=== PATIENT | female | born 1980 | race American Indian/Alaskan Native ===

== ENCOUNTER 2023-10-18 16:06 | Emergency (ER) | payer MEDICARE, BC, SELFPAY ==
[2023-10-18 16:21] VITALS: BP 107/73
[2023-10-18] MEDS: TYLENOL 1000 MG PO (17:01)
[2023-10-18 17:42] LABS: COVID-19 Antigen Negative (Negative)
[2023-10-18 19:35] LABS: Urine Albumin Trace (Neg - Trace); Urine Bilirubin 1+ (Negative); Urine Character Clear (Clear); Urine Color Yellow; Urine Glucose Negative (Negative); Urine Ketone Trace (Negative); Urine Leukocyte 1+ (Negative); Urine Nitrite Negative (Negative); Urine Occult Blood 3+ (Negative); Urine Specific Gravity 1.015 (<1.030); Urine Urobilinogen Negative (Neg - 1+)
[2023-10-18 19:40] LABS: Urine Squamous Cell >30 /LPF (Few)
[2023-10-18 19:41] LABS: Urine Bacteria Few (Negative); Urine Red Blood Cell 16-20 /HPF (0-2)
--- NOTE | 2023-10-18 20:00 | ED.GENMED ---
History of Present Illness
<Rickie Soares MD - Last Filed: 10/19/23 09:13>
General
Chief Complaint: Fever
Source: patient
Exam Limitations: none
Time Seen by Provider: 10/18/23 18:27
Nursing documentation reviewed up to this point in time: agreed with
Travel History
Have you had any contact with someone who has COVID-19?: No
Do you have any symptoms of coronavirus? Fever > 100 degrees, chills, cough, shortness of breath, sore throat, loss of taste or smell, muscle aches, or headache?: Yes
Symptoms:: 103.2
History of Present Illness
History of Present Illness:
Patient with history of invasive breast carcinoma, status post mastectomy, status post oophorectomy, currently being treated for number of 'autoimmune disease', including IVIG infusion at home with last treatment 5 days ago, as prescribed by her
neurologist, presents to ED secondary to persistent fever, associated with headache, nausea, and vomiting over the past 4 days. Patient reports generalized weakness along with increased neuropathic pain. Denies neck pain. Denies sore throat.
Denies blurred vision. Denies loss of sensation or weakness. Denies rash. Denies sick contact. Denies recent travel. Denies previous history of similar symptoms. Denies difficulty with urination. Denies coughing. Denies sore throat.
Past History
<Rickie Soares MD - Last Filed: 10/19/23 09:13>
Past History
ED Past Medical History: Cancer (breats), Fibromyalgia, HTN, Hypothyroidism, Psychiatric (A/D, bipolar) and Other (RSD)
ED Past Surgical History: and Other (Multiple abdominal surgeries)
Social History
Tobacco: Non-smoker
Alcohol: None
Drug: None
Personal:
Living: with family
Employment: Employed (Former pharmacist now owns a pharmacy)
Family History
Family History: Hypertension
Review of Systems
<Rickie Soares MD - Last Filed: 10/19/23 09:13>
Review of Systems
Allergies reviewed?: Yes
All Other Systems: ROS reviewed and negative except as documented in HPI and ROS
Constitutional: Reports fever and chills
EENT: Reports no symptoms; Denies sore throat
Respiratory: Reports no symptoms
Cardiac: Reports no symptoms
ABD/GI: Reports nausea and vomiting; Denies diarrhea
: Reports no symptoms
Musculoskeletal: Reports no symptoms; Denies neck pain
Skin: Reports no symptoms
Neurological: Reports headache; Denies dizzy or weakness
Phy Exam
<Rickie Soares MD - Last Filed: 10/19/23 09:13>
Physical Exam
Physical Exam:
Physical Exam
General: mild distress, not acutely ill. afebrile
Head: nc/at. eomi
Neck: supple. no meningeal signs. negative Kernig's and Brudzinski sign.
Heart: s1/s2 regular rate and rhythm, no murmur. equal radial pulses.
Lungs: no acute respiratory distress. clear bilaterally
Abdomen: normal bowel sounds. not tender. no distention
Neuro: alert and oriented. no focal neurological deficits
Skin: no rash
Psychiatric: well kept. interactive and cooperative
Extremities: no edema. no calf tenderness.
Course
<Rickie Soares MD - Last Filed: 10/19/23 09:13>
Orders/Labs/Results
Orders:
Orders
10/18/23 16:53
Acetaminophen [Tylenol] 1,000 mg .ROUTE .STK-MED ONE
10/18/23 17:00
Acetaminophen [Tylenol] 1,000 mg PO NOW STA
10/18/23 17:06
COVID-19 Antigen Urgent
Source: Nasal Swab
Influenza A+B Rapid Molecular Urgent
[facility]EN[facility] Source: Nasal Swab
Specimen Description:
10/18/23 19:16
0.9% Sodium Chloride 1000 ml [Nss] 1,000 ml IV BOLUS
HYDROmorphone [Dilaudid] 0.5 mg IV NOW STA
Ondansetron Injectable [Zofran] 4 mg IV NOW STA
10/18/23 19:28
Urinalysis Reflex To Culture Urgent
Date Specimen was Collected: 10/18/23
Time Specimen was Collected: 19:22
Urine Microscopic Reflex Cult Urgent
Urine Culture Urgent
HENRY Source: U
Specimen Description:
Date Specimen was Collected: 10/18/23
Time Specimen was Collected: 19:22
10/18/23 19:46
Add On- LAB Urgent
Tests Added?: serum B-HCG, qualitative
CT Abd/pel Without Iv Or Oral Urgent
Comment:
Reason For Exam: flank pain w hematuria
10/18/23 20:00
Blood Culture Q30M
[facility]ENRY Source: Blood/Venous
Specimen Description:
10/18/23 20:33
Complete Blood Count/With Diff Urgent
Comprehensive Metabolic Panel Urgent
HCG, Serum Qualitative Screen Urgent
Comment: ADD ON
Lactic Acid Q4H
Comment: CANCEL 2nd LACTIC ACID IF 1st LACTIC ACID IS LESS THAN 2
Magnesium Urgent
Manual Differential Urgent
Blood Culture Q30M
[facility]ENRY Source: Blood/Venous
Specimen Description:
10/18/23 22:58
Diphenhydramine [Benadryl] 25 mg IV NOW STA
Abnormal Lab Results
10/18/23 10/18/23
19:28 20:33
WBC 2.6 L 10^3/uL
(4.8-10.8)
RBC 3.76 L 10^6/uL
(4.20-5.40)
Hgb 11.4 L g/dL
(12.0-16.0)
Hct 32.6 L %
(37.0-47.0)
MPV 10.6 H fL
(7.4-10.4)
Sodium 127 L mmol/L
(135-145)
Chloride 97 L mmol/L
(98-107)
BUN 19 H mg/dl
(7-17)
AST 80 H U/L
(14-36)
ALT 42 H U/L
(0-35)
Total Protein 9.6 H g/dl
(6.3-8.2)
Urine Ketones Trace A
(Negative)
Ur Occult Blood Reflex 3+ A
(Negative)
Urine Bilirubin 1+ A
(Negative)
Leukocyte Esterase Rfl 1+ A
(Negative)
Urine RBC 16-20 A /HPF
(0-2)
Urine WBC (Reflex) 11-15 A /HPF
(0-5)
Urine Bacteria (Reflex) Few A
(Negative)
10/18/23 20:33
10/18/23 20:33
Vital Signs
Initial and Last Documented VS:
Initial Vital Signs
Temp Pulse Resp BP Pulse Ox
103.2 F H 121 18 107/73 99
10/18/23 16:21 10/18/23 16:21 10/18/23 16:21 10/18/23 16:21 10/18/23 16:21
Last Documented Vital Signs
Temp Pulse Resp BP Pulse Ox
98.4 F 80 18 96/71 98
10/18/23 23:53 10/19/23 00:00 10/19/23 00:00 10/19/23 00:00 10/18/23 21:56
<Christopher Chavez, DO - Last Filed: 10/18/23 23:53>
Orders/Labs/Results
Orders:
Orders
10/18/23 16:53
Acetaminophen [Tylenol] 1,000 mg .ROUTE .STK-MED ONE
10/18/23 17:00
Acetaminophen [Tylenol] 1,000 mg PO NOW STA
10/18/23 17:06
COVID-19 Antigen Urgent
Source: Nasal Swab
Influenza A+B Rapid Molecular Urgent
[facility]ENRY Source: Nasal Swab
Specimen Description:
10/18/23 19:16
0.9% Sodium Chloride 1000 ml [Nss] 1,000 ml IV BOLUS
HYDROmorphone [Dilaudid] 0.5 mg IV NOW STA
Ondansetron Injectable [Zofran] 4 mg IV NOW STA
10/18/23 19:28
Urinalysis Reflex To Culture Urgent
Date Specimen was Collected: 10/18/23
Time Specimen was Collected: 19:22
Urine Microscopic Reflex Cult Urgent
Urine Culture Urgent
HENRY Source: U
Specimen Description:
Date Specimen was Collected: 10/18/23
Time Specimen was Collected: 19:22
10/18/23 19:46
Add On- LAB Urgent
Tests Added?: serum B-HCG, qualitative
CT Abd/pel Without Iv Or Oral Urgent
Comment:
Reason For Exam: flank pain w hematuria
10/18/23 20:00
Blood Culture Q30M
[facility] Source: Blood/Venous
Specimen Description:
10/18/23 20:33
Complete Blood Count/With Diff Urgent
Comprehensive Metabolic Panel Urgent
HCG, Serum Qualitative Screen Urgent
Comment: ADD ON
Lactic Acid Q4H
Comment: CANCEL 2nd LACTIC ACID IF 1st LACTIC ACID IS LESS THAN 2
Magnesium Urgent
Manual Differential Urgent
Blood Culture Q30M
[facility]ENRY Source: Blood/Venous
Specimen Description:
10/18/23 22:58
Diphenhydramine [Benadryl] 25 mg IV NOW STA
Abnormal Lab Results
10/18/23 10/18/23
19:28 20:33
WBC 2.6 L 10^3/uL
(4.8-10.8)
RBC 3.76 L 10^6/uL
(4.20-5.40)
Hgb 11.4 L g/dL
(12.0-16.0)
Hct 32.6 L %
(37.0-47.0)
MPV 10.6 H fL
(7.4-10.4)
Sodium 127 L mmol/L
(135-145)
Chloride 97 L mmol/L
(98-107)
BUN 19 H mg/dl
(7-17)
AST 80 H U/L
(14-36)
ALT 42 H U/L
(0-35)
Total Protein 9.6 H g/dl
(6.3-8.2)
Urine Ketones Trace A
(Negative)
Ur Occult Blood Reflex 3+ A
(Negative)
Urine Bilirubin 1+ A
(Negative)
Leukocyte Esterase Rfl 1+ A
(Negative)
Urine RBC 16-20 A /HPF
(0-2)
Urine WBC (Reflex) 11-15 A /HPF
(0-5)
Urine Bacteria (Reflex) Few A
(Negative)
10/18/23 20:33
10/18/23 20:33
Vital Signs
Temp: 98.4 F
Pulse: 80
Initial and Last Documented VS:
Initial Vital Signs
Temp Pulse Resp BP Pulse Ox
103.2 F H 121 18 107/73 99
10/18/23 16:21 10/18/23 16:21 10/18/23 16:21 10/18/23 16:21 10/18/23 16:21
Last Documented Vital Signs
Temp Pulse Resp BP Pulse Ox
98.4 F 80 18 96/71 98
10/18/23 23:53 10/19/23 00:00 10/19/23 00:00 10/19/23 00:00 10/18/23 21:56
<Mayank Tapia PA-C - Last Filed: 10/20/23 11:21>
Orders/Labs/Results
Orders:
Orders
10/18/23 16:53
Acetaminophen [Tylenol] 1,000 mg .ROUTE .STK-MED ONE
10/18/23 17:00
Acetaminophen [Tylenol] 1,000 mg PO NOW STA
10/18/23 17:06
COVID-19 Antigen Urgent
Source: Nasal Swab
Influenza A+B Rapid Molecular Urgent
[facility] Source: Nasal Swab
Specimen Description:
10/18/23 19:16
0.9% Sodium Chloride 1000 ml [Nss] 1,000 ml IV BOLUS
HYDROmorphone [Dilaudid] 0.5 mg IV NOW STA
Ondansetron Injectable [Zofran] 4 mg IV NOW STA
10/18/23 19:28
Urinalysis Reflex To Culture Urgent
Date Specimen was Collected: 10/18/23
Time Specimen was Collected: 19:22
Urine Microscopic Reflex Cult Urgent
Urine Culture Urgent
[facility] Source: U
Specimen Description:
Date Specimen was Collected: 10/18/23
Time Specimen was Collected: 19:22
10/18/23 19:46
Add On- LAB Urgent
Tests Added?: serum B-HCG, qualitative
CT Abd/pel Without Iv Or Oral Urgent
Comment:
Reason For Exam: flank pain w hematuria
10/18/23 20:00
Blood Culture Q30M
[facility] Source: Blood/Venous
Specimen Description:
10/18/23 20:33
Complete Blood Count/With Diff Urgent
Comprehensive Metabolic Panel Urgent
HCG, Serum Qualitative Screen Urgent
Comment: ADD ON
Lactic Acid Q4H
Comment: CANCEL 2nd LACTIC ACID IF 1st LACTIC ACID IS LESS THAN 2
Magnesium Urgent
Manual Differential Urgent
Blood Culture Q30M
[facility] Source: Blood/Venous
Specimen Description:
10/18/23 22:58
Diphenhydramine [Benadryl] 25 mg IV NOW STA
Abnormal Lab Results
10/18/23 10/18/23
19:28 20:33
WBC 2.6 L 10^3/uL
(4.8-10.8)
RBC 3.76 L 10^6/uL
(4.20-5.40)
Hgb 11.4 L g/dL
(12.0-16.0)
Hct 32.6 L %
(37.0-47.0)
MPV 10.6 H fL
(7.4-10.4)
Sodium 127 L mmol/L
(135-145)
Chloride 97 L mmol/L
(98-107)
BUN 19 H mg/dl
(7-17)
AST 80 H U/L
(14-36)
ALT 42 H U/L
(0-35)
Total Protein 9.6 H g/dl
(6.3-8.2)
Urine Ketones Trace A
(Negative)
Ur Occult Blood Reflex 3+ A
(Negative)
Urine Bilirubin 1+ A
(Negative)
Leukocyte Esterase Rfl 1+ A
(Negative)
Urine RBC 16-20 A /HPF
(0-2)
Urine WBC (Reflex) 11-15 A /HPF
(0-5)
Urine Bacteria (Reflex) Few A
(Negative)
10/18/23 20:33
10/18/23 20:33
Vital Signs
Initial and Last Documented VS:
Initial Vital Signs
Temp Pulse Resp BP Pulse Ox
103.2 F H 121 18 107/73 99
10/18/23 16:21 10/18/23 16:21 10/18/23 16:21 10/18/23 16:21 10/18/23 16:21
Last Documented Vital Signs
Temp Pulse Resp BP Pulse Ox
98.4 F 80 18 96/71 98
10/18/23 23:53 10/19/23 00:00 10/19/23 00:00 10/19/23 00:00 10/18/23 21:56
<Rickie Soares MD - Last Filed: 10/19/23 09:13>
MDM/Problems Addressed
MDM/Problems Addressed:
History and exam inconsistent with meningitis, as patient remains neurologically intact without any evidence of meningismus.
CT abdomen pelvis ordered secondary to hematuria along with nonspecific flank pain along with fever. CT scan: No acute findings.
Patient reports improvement in symptoms after treatment. Patient will be given IV fluids and reassessed.
<Rickie Soares MD - Last Filed: 10/19/23 09:13>
*Critical Care Note
Total Time (30-74mins, 75-104mins- exclusive of procedures): Not Applicable
<Christopher Chavez DO - Last Filed: 10/18/23 23:53>
Update Note
Update Note:
Other than mild hyponatremia, chemistries relatively unremarkable, heart rate has improved with IV fluids. No clear sign for UTI based on UA�urine culture to be pending. CT suggest some degree of constipation. Leukopenia noted. She was given IV
fluids. During IV fluid administration, she developed some itchiness and think this may be related to allergen from the IV bag. Benadryl was ordered.
<Mayank Tapia PA-C - Last Filed: 10/20/23 11:21>
Update Note
Update Note:
Other than mild hyponatremia, chemistries relatively unremarkable, heart rate has improved with IV fluids. No clear sign for UTI based on UA�urine culture to be pending. CT suggest some degree of constipation. Leukopenia noted. She was given IV
fluids. During IV fluid administration, she developed some itchiness and think this may be related to allergen from the IV bag. Benadryl was ordered.
Callback Addendum by Mayank Tapia PA-C
10/20/2023 0921
Attempted to contact patient without success. Voicemail left. Preliminary urine culture reveals greater than 100,000 CFU presumptive E. coli. Pending final results. Patient will likely need antibiotic therapy given symptoms/pmhx.
Callback Addendum by Mayank Tapia PA-C
10/20/2023 1121
Patient called back, she states she would like to come back in for re-evaluation, now with fever 103, back pain, vomiting.
ED Attending Note
<Rickie Soares MD - Last Filed: 10/19/23 09:13>
-
Portions of this chart may have been created with voice recognition software.� Occasional wrong word or��sound alike� substitutions may have occurred due to the inherent limitations of voice recognition software.
Discharge Plan
Departure
Patient Disposition: Home (Routine Discharge)
Date of Disposition: 10/18/23
Time of Disposition: 23:49
Patient with high blood pressure during this ER visit?: Yes
Discharge Problem:
Fever
Instructions: Fever, Adult (DC)
Prescriptions:
No Action
levothyroxine 112 MCG tablet
150 mcg PO DAILY
bupropion HCl 300 MG tablet extended release 24 hr
300 mg PO DAILY
venlafaxine [Effexor XR] 37.5 MG capsule,extended release 24hr
37.5 mg PO BID
lidocaine 1 PATCH adhesive patch,medicated
1 patch topical DAILY
gabapentin 100 MG capsule
100 mg PO Daily
cholecalciferol (vitamin D3) 2,000 UNIT tablet
5,000 unit PO Daily
qikeswdaah-uwfmoozjdykhj-yznm [Fioricet] 1 EACH capsule
1 ea PO Daily PRN (Reason: Headache)
lgvwjuuvqcdham-jdvyg-7-dha-epa [Vayarin] 1 EACH capsule
1 ea PO Daily
metronidazole 500 MG tablet
500 mg PO TID Qty: 21 0RF
levofloxacin 500 MG tablet
500 mg PO DAILY Qty: 7 0RF
ascorbic acid (vitamin C) [Vitamin C] 500 MG tablet
1,000 mg PO BID Qty: 56 0RF
Rx Instructions:
Take 1,000 mg twice a day for 14 days
albuterol sulfate 1 PUFF HFA aerosol inhaler
2 puff inhalation R Q4HPRN PRN (Reason: shortness of breath) Qty: 1 0RF
zinc sulfate 220 MG capsule
220 mg PO DAILY Qty: 14 0RF
Rx Instructions:
Take 220 mg daily for 14 days
cholecalciferol (vitamin D3) 1,000 UNITS tablet
2,000 units PO DAILY Qty: 28 0RF
Rx Instructions:
Take 2,000 units daily for 14 days
Referrals:
UNKNOWN - PT DOES,NOT KNOW [Family Provider] -
Activity Restrictions/Additional Instructions:
Blood cultures are currently pending. Your white count is a little bit low at 2.6 but your absolute neutrophil count is normal. Your sodium level is a little bit low at 127 but otherwise chemistry tests are normal. testing is negative.
There is no definite sign of urinary tract infection but urine culture and blood cultures are pending. Flu and COVID testing are negative. Return here if worse.
Interventions
Interventions:
*Risk Screen - Suicide Last Done: 10/19/23 00:16
*General Assessment Last Done: 10/19/23 00:16
*Neglect/Abuse Screening Last Done: 10/19/23 00:16
ED- Fall Risk Assessment Last Done: 10/18/23 21:57
*ED COVID-19 Vaccine History Last Done: 10/19/23 00:16
*Nursing Disposition Last Done: 10/19/23 00:16
NG-Omxkxr-Bkroowhhlf Assessment Last Done: 10/18/23 21:57
ED- Neurological Assessment Last Done: 10/18/23 21:57
ED-Skin Assessment Last Done: 10/18/23 21:57
Discharge Date and Time
Discharge Date/Time: 10/19/23 00:34
Print Language: PASHTO
[2023-10-18] MEDS: ZOFRAN 4 MG IV (20:19)
[2023-10-18] MEDS: DILAUDID 0.5 MG IV (20:19)
[2023-10-18] MEDS: NSS 1000 IV (20:20)
[2023-10-18 20:44] LABS: Hematocrit 32.6 % (37.0-47.0); Hemoglobin 11.4 g/dL (12.0-16.0); Mean Corpuscular Hgb 30.3 pg (27.0-31.0); Mean Corpuscular Volume 86.7 fL (81.0-99.0); Mean Platelet Volume 10.6 fL (7.4-10.4); Platelet Count 135 10^3/uL (130-400); Red Blood Cell Count 3.76 10^6/uL (4.20-5.40); Red Cell Dist. Width 13.1 % (11.5-14.5); White Blood Cell Count 2.6 10^3/uL (4.8-10.8)
[2023-10-18 20:54] LABS: HCG, Serum Qualitative Screen Negative
[2023-10-18 20:58] LABS: Lactic Acid 0.9 mmol/L (0.7-2.0)
[2023-10-18 21:06] LABS: Absolute Neutrophils -Man Diff 1.7 10^3/uL (1.4-6.5); Atypical Lymphocytes 7 %; Band Neutrophils 0 % (0-3); Lymphocytes 21 % (20-51); Monocytes 4 % (2-9); Segmented Neutrophils 68 % (42-75)
[2023-10-18 21:07] LABS: Normal RBC Morphology Yes; Platelets Checked Yes; Total Cells Counted 100
[2023-10-18 21:30] LABS: ALT (SGPT) 42 U/L (0-35); AST (SGOT) 80 U/L (14-36); Alkaline Phosphatase 53 U/L (38-126); Blood Urea Nitrogen 19 mg/dl (7-17); Calcium 8.6 mg/dl (8.4-10.2); Carbon Dioxide 24 mmol/L (22-30); Chloride 97 mmol/L (98-107); Glucose 99 mg/dl (70-99); Magnesium 1.8 mg/dl (1.6-2.3); Sodium 127 mmol/L (135-145); Total Bilirubin 0.9 mg/dl (0.2-1.3); Total Protein 9.6 g/dl (6.3-8.2); eGFR > 60.00
[2023-10-18 21:43] VITALS: BP 105/73
[2023-10-18 21:56] VITALS: BP 105/73
[2023-10-18] MEDS: BENADRYL 25 MG IV (23:19)
[2023-10-18 23:58] VITALS: BP 99/71
[2023-10-19] VITALS: BP 96/71
== END 2023-10-19 00:34 | disposition home or self-care (01) ==
LOC: EMR 16:06
PROVIDERS: Physician Assistant Medical; EMERGENCY PHYSICIAN Emergency Medicine
DX: R50.9 Fever, unspecified (principal); Z11.52 Encounter for screening for COVID-19; I10 Essential (primary) hypertension
CPT/HCPCS: 99284; 96374; 96375 ×2; 96361; 74176; 80053; 81003; 81015; 83605; 83735; 84703; 85025; 87040; 87077; 87086; 87088; 87186; 87502; 87811

== ENCOUNTER 2023-10-20 17:37 | Inpatient (IN) | payer MEDICARE, BC, SELFPAY ==
[2023-10-20 12:00] VITALS: BP 107/75
--- NOTE | 2023-10-20 13:18 | ED.GENMED ---
History of Present Illness
General
Chief Complaint: Fever
Source: patient and records
Time Seen by Provider: 10/20/23 12:55
Travel History
Have you had any contact with someone who has COVID-19?: No
Do you have any symptoms of coronavirus? Fever > 100 degrees, chills, cough, shortness of breath, sore throat, loss of taste or smell, muscle aches, or headache?: Yes
Symptoms:: fever
History of Present Illness
History of Present Illness:
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
fevers after being seen here on Sunday for similar. Patient's urine culture came back positive and she had not been started on antibiotics. Received a phone call earlier this morning about the positive urine culture but did not start the
antibiotic. Patient notes continued weakness, body aches, headache, nausea, decreased p.o. intake to both solids and liquids but denies any urinary symptoms. No known sick contacts, recent travel or recent antibiotics. Last dose of Tylenol was
while in the waiting room. Social history otherwise noncontributory.
Past History
Past History
ED Past Medical History: Cancer (breats), Fibromyalgia, HTN, Hypothyroidism, Psychiatric (A/D, bipolar) and Other (RSD)
ED Past Surgical History: and Other (Multiple abdominal surgeries)
Social History
Tobacco: Non-smoker
Alcohol: None
Drug: None
Personal:
Living: with family
Employment: Employed (Former pharmacist now owns a pharmacy)
Family History
Family History: Hypertension
Review of Systems
Review of Systems
All Other Systems: ROS reviewed and negative except as documented in HPI and ROS
Phy Exam
Physical Exam
Physical Exam:
GENERAL: Alert , ill-appearing but nontoxic
EYE: clear conjunctiva b/l
HEAD: NCAT
ENT: o/p clr, mmm.
CARDIAC: Tachycardic rate and rhythm, no murmur
LUNGS: Clear breath sounds bilaterally, no acute respiratory distress, no wheezes/rales/rhonchi
ABDOMEN: Soft, without focal tenderness, no r/g, mild right CVA tenderness
NEUROLOGICAL: Alert and oriented
SKIN: Warm and dry, skin intact.
MUSCULOSKELETAL: No edema, well perfused.
PSYCH: Normal and appropriate interaction.
Scores
Heart Failure Risk
Heart Failure Risk Score: Not Applicable
Heart Score for Chest Pain Patients
STEMI patient?: Not applicable
Withdrawal Assessment of Alcohol
Withdrawal Assessment Completed?: Not applicable
Course
Orders/Labs/Results
Orders:
Orders
10/20/23 13:16
Urinalysis Reflex To Culture Urgent
Date Specimen was Collected: 10/20/23
Time Specimen was Collected: 13:44
CefTRIAXone [Rocephin] 1,000 mg IV NOW STA
Ondansetron Injectable [Zofran] 4 mg IV NOW STA
10/20/23 13:17
CR Chest - 2 Views Urgent
Comment:
Reason For Exam: fever
10/20/23 13:21
COVID-19 Antigen Urgent
Source: Nasal Swab
US Kidneys [US Renal Only W/O Bladder] Urgent
Comment:
Reason For Exam: right flank pain, UTI, fever
10/20/23 13:32
Complete Blood Count/With Diff Urgent
Comprehensive Metabolic Panel Urgent
Lactic Acid Q4H
Comment: CANCEL 2nd LACTIC ACID IF 1st LACTIC ACID IS LESS THAN 2
Manual Differential Urgent
Procalcitonin Urgent
PCT Algorithmm Indication: Sepsis
Blood Culture Q30M
[facility] Source: Blood/Venous
Specimen Description:
Blood Culture Q30M
[facility] Source: Blood/Venous
Specimen Description:
10/20/23 13:50
Sterile Water [Sterile Water For Injection] 10 ml .ROUTE .STK-MED ONE
10/20/23 14:18
Monotest Urgent
Influenza A+B Rapid Molecular Urgent
[facility] Source: Nasal Swab
Specimen Description:
10/20/23 14:30
HYDROmorphone [Dilaudid] 1 mg IV NOW STA
Abnormal Lab Results
10/20/23 10/20/23
13:32 14:18
WBC 2.6 L 10^3/uL
(4.8-10.8)
RBC 3.49 L 10^6/uL
(4.20-5.40)
Hgb 10.5 L g/dL
(12.0-16.0)
Hct 29.3 L %
(37.0-47.0)
Plt Count 110 L 10^3/uL
(130-400)
MPV 10.5 H fL
(7.4-10.4)
Band Neutrophils 10 H D %
(0-3)
Sodium 128 L mmol/L
(135-145)
Chloride 97 L mmol/L
(98-107)
Calcium 8.3 L mg/dl
(8.4-10.2)
AST 83 H U/L
(14-36)
ALT 40 H U/L
(0-35)
Total Protein 8.6 H g/dl
(6.3-8.2)
Monoscreen Positive A
(Negative)
10/20/23 13:32
10/20/23 13:32
Vital Signs
Initial and Last Documented VS:
Initial Vital Signs
Temp Pulse Resp BP Pulse Ox
102.1 F H 105 18 107/75 96
10/20/23 12:00 10/20/23 12:00 10/20/23 12:00 10/20/23 12:00 10/20/23 12:00
Last Documented Vital Signs
Temp Pulse Resp BP Pulse Ox
102.1 F H 105 18 107/75 96
10/20/23 12:00 10/20/23 12:00 10/20/23 12:00 10/20/23 12:00 10/20/23 12:00
MDM/Problems Addressed
Differential Diagnosis Includes:
Cystitis, pyelonephritis, infected kidney stone, bacteremia, COVID, flu, IVIG reaction
MDM/Problems Addressed:
43-year-old female presenting emergency department for evaluation of persistent fever, 5 days of symptoms, seen in this emergency department earlier this. She had labs, urine and cultures done. Urine culture did grow 100,000 CFU of E. coli and
50,000 CFU Streptococcus species. Urine culture shows good cephalosporin sensitive. Will treat with dose of Rocephin. Repeat cultures to be drawn. Given the right flank tenderness on exam will obtain an ultrasound of the kidneys. Anticipate
admission. Reassessment following.
Chronic conditions affecting care: Neurological disorder and Cancer
Acute Exacerbation and/or Progression of Chronic Illness: Neurological disorder
*Radiology
Radiology exam reviewed: radiology read reviewed
*Pulse Oximetry
Patient hypoxic: no
*Critical Care Note
Total Time (30-74mins, 75-104mins- exclusive of procedures): Not Applicable
Data Reviewed
Review of Other/Old Records Reveals: Labs, Records and Testing
Patient Management
Discussion with other providers: Hospitalist
Escalation/DeEscalation of care consider admission/obs:
When reviewing patient's labs from her last visit as well as today's it was noticed that patient had atypical lymphocytes and mildly elevated liver function tests on labs done 10/18/2023. I added on a monotest to labs that were already sent to the
lab. Her labs today show the same leukopenia but has a new bandemia. Mild hyponatremia and liver function test still slightly elevated. Patient's monotest ultimately did come back positive which I suspect is the reason behind a multitude of her
symptoms however given her bandemia combined with her urinary tract infection and continued generalized weakness will admit for IV antibiotics. Patient is happy and agreeable with this plan. She did note to me that following either the Rocephin or
Dilaudid she was experiencing some generalized pruritus so will order 25 mg of Benadryl. Hospitalist team was notified and accepts for continued evaluation and treatment
ED Attending Note
-
Portions of this chart may have been created with voice recognition software.� Occasional wrong word or��sound alike� substitutions may have occurred due to the inherent limitations of voice recognition software.
Discharge Plan
Departure
Patient Disposition: Admit
Date of Disposition: 10/20/23
Time of Disposition: 15:36
Presentation/result/management discussed w/ accepting MD/DO: Hospitalist
Discharge Problem:
UTI (urinary tract infection), Mononucleosis, Hyponatremia
Prescriptions:
No Action
levothyroxine 112 MCG tablet
150 mcg PO DAILY
bupropion HCl 300 MG tablet extended release 24 hr
300 mg PO DAILY
venlafaxine [Effexor XR] 37.5 MG capsule,extended release 24hr
37.5 mg PO BID
lidocaine 1 PATCH adhesive patch,medicated
1 patch topical DAILY
gabapentin 100 MG capsule
100 mg PO Daily
cholecalciferol (vitamin D3) 2,000 UNIT tablet
5,000 unit PO Daily
pkxzavbewb-eumptetlnjbqx-tzff [Fioricet] 1 EACH capsule
1 ea PO Daily PRN (Reason: Headache)
mmlmljdeaixdrp-jtgta-7-dha-epa [Vayarin] 1 EACH capsule
1 ea PO Daily
albuterol sulfate 1 PUFF HFA aerosol inhaler
2 puff inhalation R Q4HPRN PRN (Reason: shortness of breath) Qty: 1 0RF
Referrals:
UNKNOWN - PT DOES,NOT KNOW [Family Provider] -
Interventions
Interventions:
*Risk Screen - Suicide Last Done: 10/20/23 12:00
*General Assessment Last Done: 10/20/23 12:00
*Neglect/Abuse Screening Last Done: 10/20/23 12:00
*ED COVID-19 Vaccine History Last Done: 10/20/23 12:00
Discharge Date and Time
Print Language: MACEDONIAN
[2023-10-20 13:47] LABS: Hematocrit 29.3 % (37.0-47.0); Hemoglobin 10.5 g/dL (12.0-16.0); Mean Corp Hgb Conc. 35.8 g/dL (33.0-37.0); Mean Corpuscular Hgb 30.1 pg (27.0-31.0); Mean Platelet Volume 10.5 fL (7.4-10.4); Nucleated Red Blood Cells % 0 %; Platelet Count 110 10^3/uL (130-400); Red Blood Cell Count 3.49 10^6/uL (4.20-5.40); Red Cell Dist. Width 13.2 % (11.5-14.5); White Blood Cell Count 2.6 10^3/uL (4.8-10.8)
[2023-10-20 13:55] LABS: Lactic Acid 0.7 mmol/L (0.7-2.0)
[2023-10-20 14:00] LABS: ALT (SGPT) 40 U/L (0-35); AST (SGOT) 83 U/L (14-36); Albumin 3.7 g/dl (3.5-5.0); Alkaline Phosphatase 53 U/L (38-126); Blood Urea Nitrogen 13 mg/dl (7-17); Calcium 8.3 mg/dl (8.4-10.2); Carbon Dioxide 27 mmol/L (22-30); Chloride 97 mmol/L (98-107); Glucose 91 mg/dl (70-99); Sodium 128 mmol/L (135-145); Total Bilirubin 0.7 mg/dl (0.2-1.3); Total Protein 8.6 g/dl (6.3-8.2); eGFR > 60.00
[2023-10-20 14:14] LABS: Procalcitonin 0.05 ng/ml (0.0-0.25)
[2023-10-20 14:24] LABS: Absolute Neutrophils -Man Diff 1.4 10^3/uL (1.4-6.5); Band Neutrophils 10 % (0-3); Lymphocytes 36 % (20-51); Monocytes 7 % (2-9); Platelets Checked Yes; Segmented Neutrophils 47 % (42-75)
[2023-10-20 14:25] LABS: Normal RBC Morphology Yes; Total Cells Counted 100
[2023-10-20] MEDS: ZOFRAN 4 MG IV (14:33)
[2023-10-20] MEDS: ROCEPHIN 1000 MG IV (14:33)
[2023-10-20] MEDS: DILAUDID 1 MG IV (14:33)
[2023-10-20 15:20] LABS: Monotest Positive (Negative)
--- NOTE | 2023-10-20 15:50 | HPS.HSE ---
Family Physician
-
Family Physician: NOT KNOW UNKNOWN - PT DOES
Chief Complaint
-
Generalized weakness and fever
History of Present Illness
43-year-old with multiple comorbidities including breast cancer, fibromyalgia, RSD, hypothyroidism second visit to the ER over the last 2 to 3 days, initially was here on October 17 for persistent fever, where she was given fluid and urinalysis that
showed UTI but no antibiotic given according to the patient and the ER record. Continue to have a fever with generalized fatigue and body ache to the point admitted some point her body ache was 20/10 but over the last 24 hours is getting easier,
she has been on narcotic and including morphine 15 mg immediate release every 6 hours. Also Fioricet and Tylenol.
For more than a week she has been having pruritus and she takes Benadryl at home as needed.
Show received a phone call today that the urine culture is positive for E. coli therefore you she was advised to come back to the hospital especially she was still symptomatic. Admit increased urinary frequency lately otherwise no dysuria urgency
or suprapubic pain or burning. At mid poor appetite and no diarrhea or chest pain or shortness of breath or cough or congestion, no sick contacts or recent travel, admitted fatigue and persistent headache with no vision change, or overall her pain
is improved when she takes her morphine and Tylenol and Fioricet.
Looks dry and dehydrated, workup in the ER concerning for sepsis with neutropenia and temperature 102,
Given fluid and IV Rocephin in the ER.
Accompanied by her at the bedside
Medical History
Past Medical History
Past Medical History: Reports Other
Additional Past Medical History:
Past medical history Reviewed:
History of breast cancer status post chemo
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
Fibromyalgia
RSD
Immunocompromised as she gets IVIG every 4 weeks but week before she got 5-day course
Stenosing tenosynovitis right hand fingers
Peripheral neuropathy
Anxiety and mood disorder
PTSD
Hiatal hernia
Surgical history:
Abdominoplasty
x 3
Oophorectomy
Right mastectomy followed by reconstruction
Left breast left
Bowel resection secondary to small bowel obstruction
Social history: Lives at home with family, no smoking and rarely drinks alcohol and she is independent.
Family history: Reviewed and noncontributory
Past Surgical History: Reports Other
Social History
Unable to obtain full social history at this time due to: Other
Family History
Family History: Other
Allergies / Home Medications
Allergies reflects when Allergies were last updated in [facility].
Home Medications with original date entered in [facility]
Allergy/Medication List:
Allergies
Allergy/AdvReac Type Severity Reaction Status Date / Time
latex Allergy Intermediate Hives Verified 10/18/23 16:20
NSAIDS (Non-Steroidal Allergy Intermediate Itching Verified 10/18/23 16:20
Anti-Inflamma
DEHP Allergy Unknown Uncoded 10/20/23 12:03
Home Medications
cholecalciferol (vitamin D3) 50 mcg (2,000 unit) tablet 5,000 unit PO DAILY 01/06/19
lidocaine 5 % topical patch 3 patch topical DAILY 01/06/19
Greenfood 2 tab PO BID 10/20/23
Probiotic 1 - 2 cap PO TID 10/20/23
acetaminophen 500 mg tablet 1,000 mg PO Q6H PRN mild pain/fever 10/20/23
bupropion HCl 150 mg 24 hr tablet, extended release 300 mg PO DAILY 10/20/23
wsivnbypij-tqmiorkbjypkh-ixeesied 50 mg-325 mg-40 mg tablet 1 tab PO Q4H PRN headache 10/20/23
cariprazine 1.5 mg capsule (Vraylar) 1.5 mg PO BID 10/20/23
cyanocobalamin (vitamin B-12) 1,000 mcg tablet (Vitamin B-12) 1,000 mcg PO DAILY 10/20/23
diphenhydramine HCl 50 mg capsule 50 mg PO Q4H PRN allergic reaction/itching 10/20/23
gabapentin 600 mg tablet,extended release 24 hr (Gralise) 600 mg PO DAILY 10/20/23
cckkrszazvo-iedhwhkpf-dyw C-Mn 500 mg-400 mg capsule 2 cap PO BID 10/20/23
levothyroxine 75 mcg capsule (Tirosint) 75 mcg PO DAILY 10/20/23
liothyronine 5 mcg tablet 5 mcg PO DAILY 10/20/23
lisinopril 2.5 mg tablet 2.5 mg PO DAILY 10/20/23
metaxalone 800 mg tablet 800 mg PO BID PRN moderate pain 10/20/23
morphine 15 mg immediate release tablet 15 mg PO Q6H PRN severe pain 10/20/23
omega-3 acid ethyl esters 1 gram capsule 2 cap PO BID 10/20/23
ondansetron 4 mg disintegrating tablet 4 mg PO Q6H PRN nausea/vomiting 10/20/23
quetiapine 25 mg tablet 25 mg PO HS PRN sleep 10/20/23
turmeric 2 tab PO BID 10/20/23
Review of Systems
-
A 12 point ROS was completed and negative except as noted: Yes
Physical Exam
Vital Signs
Vital Signs
Temp Pulse Resp BP Pulse Ox
102.1 F H 105 18 107/75 96
10/20/23 12:00 10/20/23 12:00 10/20/23 12:00 10/20/23 12:00 10/20/23 12:00
Physical exam:
General: Lethargic but awake, alert and oriented x3, not in distress and holds appropriate conversation.
HEENT: No active discharge, ecchymosis or bruising, dry lips, tongue and mucous membrane.
Eyes: No discharge or red conjunctiva, no nystagmus, pupils are reactive and equal
Neck:Supple, no neck rigidity, no JVD no bruit no goiter.
Respiratory: Normal AP contour and diameter, normal chest wall movement, normal respiratory effort, no respiratory distress,
Lungs: Good air entry bilaterally, no wheezing or rhonchi, no rales or crackles
Heart: S1, S2 regular, normal rate, no added sound.
Gastrointestinal: Multiple abdominal scars, no evidence of infection, positive bowel sounds, soft, nontender, no guarding or rigidity or organomegaly
Musculoskeletal: , no chest wall abnormality or tenderness. All joints and extremities have good range of motion, no muscle tenderness or any joint swelling or tenderness.
Extremities: No pitting edema, good peripheral pulses, good range of motion
Skin: Warm and dry, no ulceration, normal color.
Neurological: Awake, alert and oriented x3, no facial droop,, speech clear and comprehensive, good muscle tone, moves extremities freely
Psychiatric: Normal mood, normal thought and judgment, normal affect,
Physical Exam
General: Other
Laboratory Results
-
10/20/23 13:32
10/20/23 13:32
Laboratory Results
Lactic Acid Cancelled 10/20/23 17:30
Total Bilirubin 0.7 mg/dl (0.2-1.3) 10/20/23 13:32
AST 83 U/L (14-36) H 10/20/23 13:32
ALT 40 U/L (0-35) H 10/20/23 13:32
Alkaline Phosphatase 53 U/L (38-126) 10/20/23 13:32
renal ultrasound: No sonographic evidence for hydronephrosis or intrarenal calculus.
Chest x-ray:No radiographic evidence for pneumonia.
Data Reviewed
-
CT Scan: Image Personally Visualized and interpreted, Discussed with Patient and Discussed with Family
Lab Data: Labs Reviewed by me, Discussed with Patient and Discussed with Family
Old Records: Reviewed
Impression/Plan
-
IMPRESSION:
43-year-old female with multiple comorbidities presented to the hospital again after 2 days ago she was here in the ER for the same complaint was fever and generalized body ache, also received a phone call today that her urine culture grew E. coli.
Acute sepsis with temperature 102, neutropenia white cell count 2.6 and encephalopathy, likely secondary to UTI while other causes may need to be considered, doubted
Angitis,
Urinary tract infection
Immunocompromised
Hyponatremia
Mononucleosis
Dehydration
Mild elevated transaminase, possible related to sepsis and TAVR taking Tylenol.
Generalized body ache
Fatigue
Fibromyalgia
Hypothyroidism
History of breast cancer
Mood disorder
PLAN:
Labs per sepsis protocol
Blood culture and lactic acid collected
IV fluid and she allergic to one of the components of the regular normal saline, has to be PHDA free? Which is given to the ER,
IV Rocephin could be discontinued pending culture and sensitivity
Multiple sign
Recheck lab
Tylenol close monitoring of the liver function.
Continue her home dose of the morphine IR as needed
Continue home dose of the thyroid medication
Contact and droplet isolation from nuclear stress
Recheck lab including sodium level,
Encourage oral hydration and intake
All discussed with the patient and the
CODE STATUS full code
DVT prophylaxis Lovenox
[2023-10-20] MEDS: BENADRYL 25 MG IV (16:08)
[2023-10-20 16:20] VITALS: BP 110/76
[2023-10-20] MEDS: NSS 500 IV ×2 (16:21→22:59)
[2023-10-20 21:30] VITALS: BP 103/71; BMI 22.5
[2023-10-20 21:40] LABS: Urine Albumin Negative (Neg - Trace); Urine Bilirubin Negative (Negative); Urine Character Clear (Clear); Urine Color Yellow; Urine Glucose Negative (Negative); Urine Ketone 2+ (Negative); Urine Leukocyte 1+ (Negative); Urine Nitrite Negative (Negative); Urine Occult Blood Negative (Negative); Urine Urobilinogen Negative (Neg - 1+); Urine pH 6.5 (5.0-9.0)
[2023-10-20 21:50] LABS: Urine Squamous Cell >30 /LPF (Few)
[2023-10-20 21:51] LABS: Urine Bacteria Few (Negative); Urine Red Blood Cell 0-2 /HPF (0-2)
[2023-10-20 23:00] VITALS: BP 129/79
--- NOTE | 2023-10-20 23:00 | PTCARENOTE ---
Pt. admitted from E.D., AAO x 3, vs stable, skin intact, generalized weakness, skin intact, call alcantar within reach.
[2023-10-20] MEDS: MORPHINE SULFATE 15 MG PO (23:22)
[2023-10-20] MEDS: LOVENOX 40 MG SC (23:32)
[2023-10-21] MEDS: ZOFRAN 4 MG IV ×2 (00:04→16:22)
[2023-10-21] MEDS: NSS 1000 IV ×2 (00:54→03:57)
[2023-10-21] MEDS: TYLENOL 650 MG PO (05:54)
[2023-10-21 06:00] VITALS: BMI 22.5
[2023-10-21 06:59] LABS: % Basophils 0.4 % (0-2); % Immature Granulocytes 0.4 % (0-0.5); % Lymphocytes 58.4 % (20.5-51.1); % Monocytes 4.4 % (1.7-9.3); % Neutrophils 36.4 % (42.2-75.2); Absolute Lymphocytes 1.6 10^3/uL (1.2-3.4); Absolute Monocytes 0.1 10^3/uL (0.1-0.6); Hematocrit 27.8 % (37.0-47.0); Hemoglobin 9.8 g/dL (12.0-16.0); Mean Corp Hgb Conc. 35.3 g/dL (33.0-37.0); Mean Corpuscular Hgb 29.9 pg (27.0-31.0); Mean Corpuscular Volume 84.8 fL (81.0-99.0); Mean Platelet Volume 11.3 fL (7.4-10.4); Nucleated Red Blood Cells % 0 %; Platelet Count 100 10^3/uL (130-400); Red Blood Cell Count 3.28 10^6/uL (4.20-5.40); Red Cell Dist. Width 13.2 % (11.5-14.5); White Blood Cell Count 2.7 10^3/uL (4.8-10.8)
[2023-10-21 07:00] VITALS: BP 117/69
[2023-10-21 07:22] LABS: ALT (SGPT) 34 U/L (0-35); AST (SGOT) 79 U/L (14-36); Albumin 3.3 g/dl (3.5-5.0); Alkaline Phosphatase 49 U/L (38-126); Blood Urea Nitrogen 10 mg/dl (7-17); Calcium 7.8 mg/dl (8.4-10.2); Carbon Dioxide 21 mmol/L (22-30); Chloride 100 mmol/L (98-107); Estimated Creatinine Clearance 70 ml/min; Glucose 69 mg/dl (70-99); Sodium 129 mmol/L (135-145); Total Bilirubin 0.6 mg/dl (0.2-1.3); Total Protein 7.8 g/dl (6.3-8.2); eGFR > 60.00
[2023-10-21] MEDS: CYTOMEL 2.5 MICROGRAM PO (07:55)
[2023-10-21] MEDS: WELLBUTRIN XL (24 hour extended release) PO (07:56)
[2023-10-21] MEDS: VISBIOME 1 CAP PO ×3 (07:57→22:01)
[2023-10-21] MEDS: LIDOCAINE 4% PATCH 3 PATCH TOPICAL (07:58)
[2023-10-21] MEDS: WELLBUTRIN XL (24 hour extended release) 150 MG PO (08:00)
[2023-10-21] MEDS: [UNRECOGNIZED DRUG - OTHER] 250 IV ×4 (10:00→22:02)
--- NOTE | 2023-10-21 11:16 | W.PN.HOSP.TC ---
Today's Communication/Plan
-
see outlined plan
Assessment / Plan
Assessment / Plan
Assessment:
Sepsis (leukopenia, fever, UTI)
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
Immunocompromised patient with IVIG treatments, hx of cancer
- continue IVF
- continue Rocephin, day 1
- imaging unremarkable
- ID consulted
Oral candidiasis (thrush) with dysphagia
- likely esophageal as well
- started Nystatin
- clears for now
Hypovolemic hyponatremia
- continue NSS
Mononucleosis
- Elevated LFTs
Fibromyalgia
RSD
- receives IVIG q4 weeks (Dr. [facility])
- continue Gabapentin
- continue Metaxalone
- continue Morphine
Hypothyroidism
- continue replacements
History of breast cancer s/p chemo
Mood disorder
- continue Wellbutrin, Cariprazine
- continue prn Seroquel
Essential HTN - on IVIS
DVT ppx: Lovenox
Code: Full
Anticipated Discharge: > 48 hours
Subjective/Interval History
-
Date of Service: October 21, 2023
feels tired, worn out
reports some dysphagia, so far only wants clears
Objective Data
-
Labs:
Laboratory Results
10/21/23
06:14
WBC 2.7 L
Hgb 9.8 L
Hct 27.8 L
Plt Count 100 L
Sodium 129 L
Potassium 4.0
Chloride 100
Carbon Dioxide 21 L
BUN 10
Creatinine 0.8
Glucose 69 L
Calcium 7.8 L
Total Bilirubin 0.6
AST 79 H
ALT 34
Alkaline Phosphatase 49
Vital Signs:
Vital Signs
Temp Pulse Resp BP Pulse Ox
98.8 F 85 16 117/69 95
10/21/23 07:00 10/21/23 07:00 10/21/23 07:00 10/21/23 07:00 10/21/23 07:00
I&O
10/20/23 10/21/23 10/22/23
06:59 06:59 06:59
Intake Total 240 / 240
Balance 240 / 240
Physical Exam
-
General: No Apparent Distress
HEENT: Normocephalic and Atraumatic
Respiratory: Negative Wheezes
Cardiac: Regular Rhythm and S1/S2
Genito-urinary: No Costovertebral Tender
Neuro: AO x 3
Hematologic / Lymphatic: No Lymphadenopathy
Psych: Calm
Data Reviewed
-
Total Time Spent with Patient (in minutes): 45
Labs: Labs Reviewed by me
[2023-10-21] MEDS: MYCOSTATIN ORAL SUSPENSION 5 ML PO ×4 (11:52→22:01)
[2023-10-21] MEDS: MIRALAX 17 GRAMS PO (11:53)
[2023-10-21] MEDS: ROCEPHIN 1000 MG IV (13:51)
[2023-10-21] MEDS: STERILE WATER FOR INJECTION 10 ML IV (13:51)
--- NOTE | 2023-10-21 14:42 | CM ---
Patient seen with spouse, initial assessment completed. Patient reports she resides with her in a multiple story home, 4 steps to enter. Patient denies DME other than a CPAP through [employer], patient denies VN or SNF. Patient confirms
PCP Dr. Murali Jameson, [facility] CM will continue to follow for discharge planning needs.
Plan; home no needs vs VN, watch for PT/OT evals.
[2023-10-21 15:00] VITALS: BP 97/66
--- NOTE | 2023-10-21 15:42 | CON.ID ---
Consultation
-
Date/Time Consultation Requested: October 21, 2023 1732
Date/Time Consultation Performed: October 21, 2023 1540
Requesting Provider: Dr. Sergei Greer
Performing Provider: Dr. Gloria Ch
Reason for Consultation: On IVIg, fever, mono, UTI
Chief Complaint / Past History
Chief Complaint
Fevers
History of Present Illness
43-year-old female with history of breast cancer completed chemo in 2012, CIDP on IVIG every 4 weeks since June 2023, who started having fevers with chills and sweats on Sunday, October 14. + nausea when upright. No urinary sxs. No diarrhea. She
just completed IVIG treatment that day. She thought maybe it was a reaction to the IVIG and she called her neurologist. Neurologist told her that she should go to the ER. She presented to the ER on October 17 and was febrile 103. COVID neg.
Influenza negative. She was pancultured.CAT scan of the abdomen/pelvis showed only moderate to large amount of stool in the colon. Patient was discharged without antibiotic. She then received a call from the ER that the urine culture is positive
for E. coli. She therefore came back to the ER October 19. She continues to have fever. She was started on ceftriaxone. Patient again denies dysuria, urinary urgency, flank pain. No sore throat or enlarged glands. She noted thrush probably from
receiving steroid during IVIG. Has no appetite. Positive fatigue and malaise. Positive frontal headache. No sinus congestion or rhinorrhea. No recent travel. She stays at home most of the time. No known mononucleosis in the past.
Past History
Additional Past Medical History:
Chronic inflammatory demyelinating polyneuropathy on IVIG q 4 weeks
History of breast cancer status post chemo completed 06/2013
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
Fibromyalgia
RSD
Stenosing tenosynovitis right hand fingers
Anxiety and mood disorder
PTSD
Hiatal hernia
RUE Lymphedema
Abdominoplasty
x 3
Oophorectomy
Right mastectomy followed by reconstruction
L breast lift 2014 and R nipple reconstruction
Bowel resection secondary to small bowel obstruction
Allergy History:
latex Allergy (Intermediate, Verified 10/18/23 16:20)
Hives
NSAIDS (Non-Steroidal Anti-Inflamma Allergy (Intermediate, Verified 10/18/23 16:20)
Itching
polyvinyl chloride (PVC) Allergy (Verified 10/21/23 08:05)
Allergy to DEHP-see comment
DEHP Allergy (Uncoded 10/20/23 12:03)
Unknown
Medications Reviewed: Yes
Current Antibiotics:
ceftriaxone
Social History
Tobacco: Non-Smoker
Alcohol: None
Drug: None
Personal:
Living: With Family
Employment: Not Employed
Family History
Family History: Not Pertinent
Review of Systems
Review of Systems
General: Fever, Chills and Change in Appetite
HEENT: Headache; Negative Lymphadenopathy, Sinus Problems or Pharyngitis
Cardiovascular: Negative Chest Pain
Respiratory: Negative Dyspnea or Cough
Gasteroenterology: Nausea and Other (no diarrhea)
Genital / Urological: Negative Dysuria or Flank Pain
Endocrine: Weakness and Fatigue
Musculoskeletal: Myalgias
Skin / Hair / Nails: Negative Rash
Neurological: Headache and Dizziness
All systems: All other systems were reviewed and were negative
Vital Signs
Temp Pulse Resp BP Pulse Ox
98.8 F 85 16 117/69 95
10/21/23 07:00 10/21/23 07:00 10/21/23 07:00 10/21/23 07:00 10/21/23 07:00
Selected Entries
10/20/23
12:00 10/21/23
05:58
Temp 102.1 F H 102.0 F H
Physical Exam
Physical Exam
Constitutional: Non-toxic
Head: Other (No frontal or maxillary sinus tenderness. )
Eyes: Negative No Conjunctival Hemorrhage or Sclera Anicteric
Oral: Other (Mild white coating on tongue)
Lymph Nodes: Negative Lymphadenopathy
Cardiovascular: Regular Rate and S1/S2
Pulmonary: Clear
Gastrointestinal: Soft, Non Tender, Non Distended and Normal Bowel Sounds
Genito-Urinary: Negative Fontenot or CVA Tenderness
Extremities: Negative Edema
Skin: Negative Rash
Neurological: AO x 3
Lab / Diagnostic Study Results
10/21/23 06:14
10/21/23 06:14
Abs Immat Gran (auto) 0.0 10^3/uL (0-0.05) 10/21/23 06:14
Absolute Neuts (auto) 1.0 10^3/uL (1.4-6.5) L 10/21/23 06:14
Absolute Lymphs (auto) 1.6 10^3/uL (1.2-3.4) 10/21/23 06:14
Absolute Monos (auto) 0.1 10^3/uL (0.1-0.6) 10/21/23 06:14
Absolute Basos (auto) 0.0 10^3/uL (0-0.2) 10/21/23 06:14
Total Counted 100 10/20/23 13:32
Immature Gran % 0.4 % (0-0.5) 10/21/23 06:14
Neutrophils % 36.4 % (42.2-75.2) L 10/21/23 06:14
Lymphocytes % 58.4 % (20.5-51.1) H 10/21/23 06:14
Monocytes % 4.4 % (1.7-9.3) 10/21/23 06:14
Eosinophils % 0.0 % (0-6) 10/21/23 06:14
Basophils % 0.4 % (0-2) 10/21/23 06:14
Abs Neuts (Manual) 1.4 10^3/uL (1.4-6.5) 10/20/23 13:32
Segmented Neutrophils 47 % (42-75) 10/20/23 13:32
Band Neutrophils 10 % (0-3) H D 10/20/23 13:32
Lymphocytes (Manual) 36 % (20-51) 10/20/23 13:32
Lactic Acid Cancelled 10/21/23 09:38
Procalcitonin 0.05 ng/ml (0.0-0.25) 10/20/23 13:32
Ur Squamous Epith Cells >30 /LPF (Few) 10/20/23 21:00
Microbiology Results
Micro:
10/20/23 13:32 Blood Culture - Preliminary
Blood/Venous No Growth in 24 hours- Final report to follow
10/20/23 13:32 Blood Culture - Preliminary
Blood/Venous No Growth in 24 hours- Final report to follow
10/20/23 21:00 Urine Culture - Pending
Urine
10/20/23 14:18 Influenza Types A & B (ROSAURA) - Final
Nasal Swab Negative for Influenza A & B, NAAT
Negative results must be combined with clinical observations
and patient history.
Nucleic Acid Amplification test (NAAT)performed on the
[facility] [employer] [facility] platform.
10/20/23 Renal US: No sonographic evidence for hydronephrosis or intrarenal calculus.
10/20/23 No radiographic evidence for pneumonia.
10/18/23 CT a/p: Normal appearance of both kidneys and the bladder. No evidence for urinary tract calculi. The appendix appears normal. There is no evidence for bowel obstruction or free intraperitoneal air. Moderate to large amount of stool within
the colon, suggesting a degree of constipation. No significant bowel wall thickening is evident. Mild fatty infiltration of the liver.
Assessment / Plan
# Fevers
# Pancytopenia
# Asymptomatic E. coli bacteruria
# + Monospot test
# Elevated LFT
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
# Oral candidiasis
# hx breast ca s/p chemo 2012
- check EBV Ab panel to confirm mono (no sore throat/LAD/splenomegaly)
- blood cx neg to date
- CXR neg.
-COVID/Flu negative
- Can continue ceftriaxone for now.
-Continue Nystatin swish and swallow
-Follow temps and CBC.
[2023-10-21] MEDS: LOVENOX SC (17:56)
[2023-10-21 22:30] VITALS: BP 106/73
[2023-10-22] MEDS: ZOFRAN 4 MG IV ×2 (01:38→17:26)
[2023-10-22] MEDS: FIORICET 1 TAB PO (01:51)
[2023-10-22] MEDS: [UNRECOGNIZED DRUG - OTHER] 250 IV ×5 (03:25→20:03)
[2023-10-22 07:09] LABS: Hematocrit 28.1 % (37.0-47.0); Hemoglobin 9.9 g/dL (12.0-16.0); Mean Corp Hgb Conc. 35.2 g/dL (33.0-37.0); Mean Corpuscular Hgb 29.9 pg (27.0-31.0); Mean Corpuscular Volume 84.9 fL (81.0-99.0); Mean Platelet Volume 10.9 fL (7.4-10.4); Nucleated Red Blood Cells % 0 %; Platelet Count 103 10^3/uL (130-400); Red Blood Cell Count 3.31 10^6/uL (4.20-5.40); Red Cell Dist. Width 13.2 % (11.5-14.5)
[2023-10-22 07:26] LABS: White Blood Cell Count 2.1 10^3/uL (4.8-10.8)
[2023-10-22 07:32] LABS: Albumin 3.4 g/dl (3.5-5.0); Chloride 100 mmol/L (98-107); Potassium 3.9 mmol/L (3.5-5.1); Sodium 134 mmol/L (135-145)
[2023-10-22 07:39] VITALS: BP 96/66
[2023-10-22 07:48] LABS: ALT (SGPT) 55 U/L (0-35); AST (SGOT) 103 U/L (14-36); Alkaline Phosphatase 49 U/L (38-126); Blood Urea Nitrogen 8 mg/dl (7-17); Calcium 8.1 mg/dl (8.4-10.2); Carbon Dioxide 19 mmol/L (22-30); Estimated Creatinine Clearance 94 ml/min; Glucose 81 mg/dl (70-99); Total Bilirubin 0.5 mg/dl (0.2-1.3); Total Protein 7.9 g/dl (6.3-8.2); eGFR > 60.00
[2023-10-22] MEDS: WELLBUTRIN XL (24 hour extended release) 150 MG PO (07:58)
[2023-10-22] MEDS: VISBIOME 1 CAP PO ×3 (07:58→22:04)
[2023-10-22] MEDS: MIRALAX 17 GRAMS PO (07:59)
[2023-10-22] MEDS: LIDOCAINE 4% PATCH 3 PATCH TOPICAL (08:00)
[2023-10-22] MEDS: CYTOMEL 2.5 MICROGRAM PO (08:00)
[2023-10-22] MEDS: MYCOSTATIN ORAL SUSPENSION 5 ML PO ×4 (08:06→22:04)
[2023-10-22 08:39] LABS: Band Neutrophils 12 % (0-3); Lymphocytes 45 % (20-51); Monocytes 5 % (2-9); Segmented Neutrophils 38 % (42-75)
[2023-10-22 08:42] LABS: Macrocytosis FEW; Normal RBC Morphology No; Platelets Checked YES; Tear Drop Red Blood Cells FEW; Total Cells Counted 100
--- NOTE | 2023-10-22 09:48 | PTCARENOTE ---
WBC 2.1 today- hospitalist notified
--- NOTE | 2023-10-22 12:15 | W.PN.HOSP.TC ---
Today's Communication/Plan
-
continue current plan of care
follow ID recs
Assessment / Plan
Assessment / Plan
Assessment:
Sepsis (leukopenia, fever, UTI)
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
Immunocompromised patient with IVIG treatments, hx of cancer
- continue IVF
- continue Rocephin, day 2
- imaging unremarkable
- ID following
Oral candidiasis (thrush) with dysphagia
- likely esophageal as well
- continue Nystatin swish/swallow
- reg diet to tolerance
Hypovolemic hyponatremia
- continue NSS
Mononucleosis
- Elevated LFTs
- ID following
- EBV Ab panel to confirm mono
- she is not active due to illness but reviewed spleen precautions
Constipation
- bowel regimen added
Fibromyalgia
RSD/CDIP
- receives IVIG q4 weeks (Dr. [facility])
- continue Gabapentin
- continue Metaxalone
- continue Morphine
Hypothyroidism
- continue replacements
History of breast cancer s/p chemo
Mood disorder
- continue Wellbutrin, Cariprazine
- continue prn Seroquel
Essential HTN - on IVIS
DVT ppx: Lovenox
Code: Full
Anticipated Discharge: 24 - 48 hours
Subjective/Interval History
-
Date of Service: October 22, 2023
feels more energetic, less tired today
reports poor appetite
no BM yet
fevers have resolved
Objective Data
-
Labs:
Laboratory Results
10/22/23
06:24
WBC 2.1 L*
Hgb 9.9 L
Hct 28.1 L
Plt Count 103 L
Sodium 134 L
Potassium 3.9
Chloride 100
Carbon Dioxide 19 L
BUN 8
Creatinine 0.6
Glucose 81
Calcium 8.1 L
Total Bilirubin 0.5
AST 103 H
ALT 55 H
Alkaline Phosphatase 49
Vital Signs:
Vital Signs
Temp Pulse Resp BP Pulse Ox
98.2 F 75 16 96/66 99
10/22/23 07:39 10/22/23 07:39 10/22/23 07:39 10/22/23 07:39 10/22/23 07:39
I&O
10/21/23 10/22/23 10/23/23
06:59 06:59 06:59
Intake Total 240 / 240 2119
Balance 240 / 240 2119
Physical Exam
-
HEENT: Normocephalic and Atraumatic
Respiratory: Negative Wheezes or Rales
Cardiac: Regular Rhythm and S1/S2
GI: Soft and Nontender
Musculoskeletal: No Edema
Neuro: AO x 3
Hematologic / Lymphatic: No Lymphadenopathy
Psych: Calm
Data Reviewed
-
Total Time Spent with Patient (in minutes): 41
Labs: Labs Reviewed by me
[2023-10-22] MEDS: STERILE WATER FOR INJECTION 10 ML IV (13:05)
[2023-10-22] MEDS: ROCEPHIN 1000 MG IV (13:05)
--- NOTE | 2023-10-22 14:19 | W.PN.ID1 ---
Date of Service
Date of Service: October 22, 2023
Today's Communication
See below.
Assessment / Plan
# Fevers resolving
# Pancytopenia
# Asymptomatic E. coli bacteruria. Repeat Ucx negative prior to start of abx.
# + Monospot test
# Elevated LFT
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
# Oral candidiasis
# hx breast ca s/p chemo 2012
- EBV Ab panel pending to confirm mono (no sore throat/LAD/splenomegaly)
-Doubt UTI. Repeat Ucx negative before abx.
- blood cx neg to date
- CXR neg.
-COVID/Flu negative
- Consider discontinue ceftriaxone (d3) if blood cx's remain negative.
-Continue Nystatin swish and swallow
-Follow temps and CBC.
Chief Complaint
-: Fever
Subjective / Review of Systems
Feels better today. Not as weak/dizzy.
Had episodes of small blood clot from nose.
Vital Signs / Physical Exam
Vital Signs
Vital Signs
Temp Pulse Resp BP Pulse Ox
98.2 F 75 16 96/66 99
10/22/23 07:39 10/22/23 07:39 10/22/23 07:39 10/22/23 07:39 10/22/23 07:39
Physical Exam
Constitutional: No Acute Distress and Comfortable
Eyes: No Conjunctival Hemorrhage and Sclera Anicteric
Oropharyngeal: Thrush (tongue) and Other
Cardiovascular: Regular Rate and S1/S2
Pulmonary: Clear
Gastrointestinal: Soft, Non Tender and Non Distended
Genito-Urinary: Negative CVA Tenderness
Extremities: Negative Edema
Neurological: AO x 3
Objective Data
Lab Data
Lab Results
10/22/23 06:24
10/22/23 06:24
Estimated Creat Clear 94 ml/min 10/22/23 06:24
Lactic Acid Cancelled 10/21/23 09:38
Total Bilirubin 0.5 mg/dl (0.2-1.3) 10/22/23 06:24
AST 103 U/L (14-36) H 10/22/23 06:24
ALT 55 U/L (0-35) H 10/22/23 06:24
Alkaline Phosphatase 49 U/L (38-126) 10/22/23 06:24
Most recent labs reviewed.
Micro Results:
10/20/23 13:32 Blood Culture - Preliminary
Blood/Venous No Growth in 48 hours- Final report to follow
10/20/23 21:00 Urine Culture - Final
Urine NO GROWTH
10/20/23 13:32 Blood Culture - Preliminary
Blood/Venous No Growth in 24 hours- Final report to follow
10/20/23 14:18 Influenza Types A & B (ROSAURA) - Final
Nasal Swab Negative for Influenza A & B, NAAT
Negative results must be combined with clinical observations
and patient history.
Nucleic Acid Amplification test (NAAT)performed on the
[employer] platform.
10/20/23 Renal US: No sonographic evidence for hydronephrosis or intrarenal calculus.
10/20/23 No radiographic evidence for pneumonia.
10/18/23 CT a/p: Normal appearance of both kidneys and the bladder. No evidence for urinary tract calculi. The appendix appears normal. There is no evidence for bowel obstruction or free intraperitoneal air. Moderate to large amount of stool within
the colon, suggesting a degree of constipation. No significant bowel wall thickening is evident. Mild fatty infiltration of the liver.
[2023-10-22 15:18] VITALS: BP 98/61
--- NOTE | 2023-10-22 15:47 | CM ---
Patient seen bedside.
Patient aware of case mangers availability should needs arise.
Plan: Home no needs anticipated.
[2023-10-22] MEDS: LOVENOX SC (17:40)
[2023-10-22] MEDS: SENOKOT-S 1 TABLET PO (22:04)
[2023-10-22 23:06] VITALS: BP 102/69
[2023-10-23] MEDS: [UNRECOGNIZED DRUG - OTHER] 250 IV ×4 (00:21→16:41)
[2023-10-23] MEDS: FIORICET 1 TAB PO (05:11)
[2023-10-23] MEDS: ZOFRAN 4 MG IV (06:30)
--- NOTE | 2023-10-23 07:32 | W.PN.HOSP.TC ---
Today's Communication/Plan
-
Neutropenic precautions
monitor off abx as per ID
hematology eval
bowel regimen, suppository prn
Assessment / Plan
Assessment / Plan
Physical Exam
HEENT: Normocephalic and Atraumatic
Respiratory: Negative Wheezes or Rales
Cardiac: Regular Rhythm and S1/S2
GI: Soft and Nontender
Musculoskeletal: No Edema
Neuro: AO x 3
Hematologic / Lymphatic: No Lymphadenopathy
Psych: Calm
Assessment:
Sepsis (leukopenia, fever, UTI)
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
Immunocompromised patient with IVIG treatments, hx of cancer
- IVF support completed
- completed 2 days empiric IV ceftriaxone
- imaging unremarkable
- ID eval appreciated, monitoring off abx
Neutropenia
-neutropenic precautions
-Hematology Eval
Oral candidiasis (thrush) with dysphagia
- likely esophageal as well
- continue Nystatin swish/swallow
Hypovolemic hyponatremia
- continue NSS
Mononucleosis
- Elevated LFTs
- ID following
- EBV Ab panel to confirm mono
- she is not active due to illness but reviewed spleen precautions
Constipation
- bowel regimen added
Fibromyalgia
RSD/CDIP
- receives IVIG q4 weeks (Dr. Alves [facility])
- continue Gabapentin
- continue Metaxalone
- continue Morphine
Hypothyroidism
- continue replacements
History of breast cancer s/p chemo
Mood disorder
- continue Wellbutrin, Cariprazine
- continue prn Seroquel
Essential HTN - on IVIS
Constipation
continue bowel regimen
bisacodyl rectal prn
DVT ppx: Lovenox
Code: Full
I spent a total of 50 minutes with the patient or on the floor. More than 50% of this time involved counseling and coordination of care.
Anticipated Discharge: 24 - 48 hours
Subjective/Interval History
-
Date of Service: October 23, 2023
no acute distress sitting up comfortably in bed. Reports constipation.
Objective Data
-
Labs:
Laboratory Results
10/23/23
06:00
WBC Pending
Hgb Pending
Hct Pending
Plt Count Pending
Sodium Pending
Potassium Pending
Chloride Pending
Carbon Dioxide Pending
BUN Pending
Creatinine Pending
Glucose Pending
Calcium Pending
Total Bilirubin Pending
AST Pending
ALT Pending
Alkaline Phosphatase Pending
Vital Signs:
Vital Signs
Temp Pulse Resp BP Pulse Ox
99.2 F 82 18 102/69 99
10/22/23 23:06 10/22/23 23:06 10/22/23 23:06 10/22/23 23:06 10/22/23 23:06
I&O
10/22/23 10/23/23 10/24/23
06:59 06:59 06:59
Intake Total 2120 / 2120 2880 / 2880
Output Total 400 / 400
Balance 2120 / 2120 2480 / 2480
[2023-10-23 07:59] VITALS: BP 88/61
[2023-10-23 08:27] LABS: Hematocrit 29.5 % (37.0-47.0); Hemoglobin 10.4 g/dL (12.0-16.0); Mean Corp Hgb Conc. 35.3 g/dL (33.0-37.0); Mean Corpuscular Hgb 29.9 pg (27.0-31.0); Mean Corpuscular Volume 84.8 fL (81.0-99.0); Mean Platelet Volume 10.7 fL (7.4-10.4); Nucleated Red Blood Cells % 0 %; Platelet Count 120 10^3/uL (130-400); Red Blood Cell Count 3.48 10^6/uL (4.20-5.40); Red Cell Dist. Width 13.3 % (11.5-14.5)
[2023-10-23] MEDS: NSS 500 IV (08:52)
[2023-10-23] MEDS: MYCOSTATIN ORAL SUSPENSION 5 ML PO ×4 (08:58→21:54)
[2023-10-23] MEDS: LIDOCAINE 4% PATCH 3 PATCH TOPICAL (08:58)
[2023-10-23] MEDS: VISBIOME 1 CAP PO ×3 (08:59→21:54)
[2023-10-23] MEDS: MIRALAX 17 GRAMS PO (08:59)
[2023-10-23] MEDS: CYTOMEL 2.5 MICROGRAM PO (08:59)
[2023-10-23] MEDS: WELLBUTRIN XL (24 hour extended release) 150 MG PO (08:59)
[2023-10-23] MEDS: SENOKOT-S 1 TABLET PO ×2 (09:01→21:54)
[2023-10-23 09:06] LABS: ALT (SGPT) 114 U/L (0-35); AST (SGOT) 182 U/L (14-36); Albumin 3.5 g/dl (3.5-5.0); Alkaline Phosphatase 53 U/L (38-126); Blood Urea Nitrogen 7 mg/dl (7-17); Calcium 8.6 mg/dl (8.4-10.2); Carbon Dioxide 23 mmol/L (22-30); Chloride 103 mmol/L (98-107); Estimated Creatinine Clearance 80 ml/min; Glucose 89 mg/dl (70-99); Potassium 3.8 mmol/L (3.5-5.1); Sodium 135 mmol/L (135-145); Total Bilirubin 0.5 mg/dl (0.2-1.3); eGFR > 60.00
[2023-10-23 09:32] LABS: Band Neutrophils 10 % (0-3); Lymphocytes 49 % (20-51); Monocytes 5 % (2-9); Normal RBC Morphology Yes; Platelets Checked Yes; Segmented Neutrophils 36 % (42-75); Total Cells Counted 100
[2023-10-23 09:35] LABS: Absolute Neutrophils -Man Diff 0.8 10^3/uL (1.4-6.5); White Blood Cell Count 1.9 10^3/uL (4.8-10.8)
[2023-10-23 10:00] VITALS: BP 106/78
--- NOTE | 2023-10-23 10:25 | PTCARENOTE ---
Patient received 500 ml bolus IV Saline without difficulty. BP post infusion 106/78.
--- NOTE | 2023-10-23 11:58 | W.PN.ID1 ---
Date of Service
Date of Service: October 23, 2023
Today's Communication
DC ceftriaxone and observe.
Assessment / Plan
# Fevers resolved
# Acute Pancytopenia
- Leukopenia continues to decline
- Thrombocytopenia improving
# Asymptomatic E. coli bacteruria. Repeat Ucx negative prior to start of abx.
# + Monospot test
# Acute Elevated LFT trending up
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
# Oral candidiasis
# hx breast ca s/p chemo 2012
-Doubt UTI. Repeat Ucx negative before abx.
- blood cx neg to date
- CXR neg.
-COVID/Flu negative
- DC ceftriaxone.
- EBV Ab panel pending to confirm mononucleosis.
- If confirmed EBV infection, ? HLH as source of leukopenia
Hem/Onc will evaluate
Chief Complaint
-: Fever and Other (Pancytopenia)
Subjective / Review of Systems
Continues to feel better with more energy.
Vital Signs / Physical Exam
Vital Signs
Vital Signs
Temp Pulse Resp BP Pulse Ox
98.3 F 67 16 106/78 98
10/23/23 07:59 10/23/23 07:59 10/23/23 07:59 10/23/23 10:00 10/23/23 07:59
Physical Exam
Constitutional: No Acute Distress and Comfortable
Eyes: No Conjunctival Hemorrhage and Sclera Anicteric
Cardiovascular: Regular Rate and S1/S2
Pulmonary: Clear
Gastrointestinal: Soft, Non Tender and Non Distended
Genito-Urinary: Negative CVA Tenderness
Extremities: Negative Edema
Neurological: AO x 3
Objective Data
Lab Data
Lab Results
10/23/23 07:38
10/23/23 07:38
Estimated Creat Clear 80 ml/min 10/23/23 07:38
Lactic Acid Cancelled 10/21/23 09:38
Total Bilirubin 0.5 mg/dl (0.2-1.3) 10/23/23 07:38
AST 182 U/L (14-36) H 10/23/23 07:38
ALT 114 U/L (0-35) H 10/23/23 07:38
Alkaline Phosphatase 53 U/L (38-126) 10/23/23 07:38
Most recent labs reviewed.
Micro Results:
10/20/23 13:32 Blood Culture - Preliminary
Blood/Venous No Growth in 48 hours- Final report to follow
10/20/23 13:32 Blood Culture - Preliminary
Blood/Venous No Growth in 48 hours- Final report to follow
10/20/23 21:00 Urine Culture - Final
Urine NO GROWTH
10/20/23 14:18 Influenza Types A & B ([facility]) - Final
Nasal Swab Negative for Influenza A & B, NAAT
Negative results must be combined with clinical observations
and patient history.
Nucleic Acid Amplification test (NAAT)performed on the
[employer] platform.
10/20/23 Renal US: No sonographic evidence for hydronephrosis or intrarenal calculus.
10/20/23 No radiographic evidence for pneumonia.
10/18/23 CT a/p: Normal appearance of both kidneys and the bladder. No evidence for urinary tract calculi. The appendix appears normal. There is no evidence for bowel obstruction or free intraperitoneal air. Moderate to large amount of stool within
the colon, suggesting a degree of constipation. No significant bowel wall thickening is evident. Mild fatty infiltration of the liver.
Care Review
Plan reviewed with: Physician
[2023-10-23 13:11] LABS: Direct Bilirubin 0.3 mg/dl (0.0-0.4); LDH 926 U/L (120-246)
--- NOTE | 2023-10-23 13:13 | CON.ONC ---
Impression
Impression
Impression -
Simran, 43 Yo F presents to the hospital with fever, headaches, fatigue, myalgias, nausea and vomitings. S/p IvIG infusions for CIDP, and Chemotherapy for herceptin positive breast carcinoma about 12 years ago. Hematology consulted for pancytopenia.
Plan -
Pancytopenia -
leukopenia with neutropenia and lymphocytosis
WBC - 2.1, ANC - 0.8, lymphocytes - 58.
platelet count -120.
Hb, hematocrit low.
Neutropenia precautions include hand hygeine.
Avoid plants and fresh or dried [place] in patients room.
Will continue to follow up.
Fever -
Improved, generalized fatigue and myalgias improved.
Appetite not yet improved.
temperature charts
Drugs that can cause the above hematological picture include IvIG, Cariprazine. IvIG can also contribute to hemolytic anemias. Lactate dehydrogenase levels elevated with normal reticulocyte count. serum haptoglobins pending.
Elevated AST, ALT(trending up)
Likely multifactorial - reports to have taken lots of tylenol before presenting to the office, monospot and EBV antibodies positive, and presence of hepatic steatosis. ID differential include lymphocytic histiocytosis.
PMHx of chemotherapy with cyclophosphamides and platins. In the setting of chemotherapy history, other differentials include leukemia and myelodysplastic syndrome.
Coagulation profile and serum ferritin levels pending.
Plan
Plan
- Pending coagulation profile, haptoglobins and serum ferritin levels
- Monitor temperature.
Patient History
History of Present Illness
Barby, 43yo F, presented to the ER with continuous fever, severe headaches, fatigue, myalgia, nausea and vomiting, she had an ER visit about 2 days ago, diagnosed with UTI and given antibiotics that she never started. She reports to have continuous
fevers, headaches, that are associated with nausea and had non projectile non bilious vomitings before coming to the ER on 10/20/23.
She received her last IvIG infusion on 10/16/23, started her IV infusions in June of 2023 for CIDP.
She also reports to have some oral thrush, and loss of appetite for a week now, and reports to have constipation. Denies dysphagia, odynophagia, easy bruising,blood in the stool, change in her urine color, and any port or central line placement,
neutropenia history in the past except for when she was on chemotherapy..
Dr. Goins, oncology - [facility], last visit - June 2023.
neurology - Dr. Alves - [place].
Past-Medical/Surgical History
PMHx - Bipolar Disorder, Breast carcinoma in 2011 s/p chemotherapy in remission, HTN, CIDP, nunu's thyroiditis with hypothyroidism, Fibromyalgia, PTSD, hiatal hernia, and stenosing tenosynovitis of right hand.
PSHx - C- section x 3, right mastectomy with reconstruction, left mastectomy, b/l salpingooophorectomy with hysterectomy, SBO s/p SB resection
Patient Medication
�Medication �Instructions �Recorded �Confirmed �Last Taken �Type
cholecalciferol (vitamin D3) 50 5,000 unit PO DAILY 01/06/19 10/21/23 10/14/23 21:00 History
mcg (2,000 unit) tablet
lidocaine 5 % topical patch 3 patch topical DAILY 01/06/19 10/21/23 10/14/23 22:00 History
Greenfood 2 tab PO BID 10/20/23 10/20/23 Unknown History
Probiotic 1 - 2 cap PO BID 10/20/23 10/21/23 10/19/23 00:00 History
acetaminophen 500 mg tablet 1,000 mg PO Q6H PRN mild pain/fever 10/20/23 10/20/23 10/20/23 History
bupropion HCl 150 mg 24 hr tablet, 150 mg PO DAILY 10/20/23 10/21/23 10/19/23 History
extended release
oosnzbrxrc-nvpzpvxnasadf-nwgqcynk 1 tab PO Q4H PRN headache 10/20/23 10/21/23 10/17/23 17:00 History
50 mg-325 mg-40 mg tablet
cariprazine 1.5 mg capsule 1.5 mg PO BID 10/20/23 10/21/23 10/14/23 09:00 History
(Vraylar)
cyanocobalamin (vitamin B-12) 1,000 mcg PO DAILY 10/20/23 10/21/23 10/14/23 12:00 History
1,000 mcg tablet (Vitamin B-12)
diphenhydramine HCl 50 mg capsule 50 mg PO Q4H PRN allergic 10/20/23 10/20/23 10/20/23 17:00 History
reaction/itching
gabapentin 600 mg tablet,extended 100 mg PO HS 10/20/23 10/21/23 10/14/23 22:00 History
release 24 hr (Gralise)
fhuxzacgtqa-nhflstraa-cgk C-Mn 500 1 cap PO TID 10/20/23 10/21/23 10/14/23 08:00 History
mg-400 mg capsule
levothyroxine 75 mcg capsule 75 mcg PO DAILY 10/20/23 10/20/23 10/20/23 22:00 History
(Tirosint)
liothyronine 5 mcg tablet 2.5 mcg PO DAILY 10/20/23 10/21/23 Unknown History
lisinopril 2.5 mg tablet 2.5 mg PO DAILY 10/20/23 10/21/23 10/17/23 09:00 History
metaxalone 800 mg tablet 800 mg PO BID PRN moderate pain 10/20/23 10/20/23 Unknown History
morphine 15 mg immediate release 30 mg PO Q6H PRN severe pain 10/20/23 10/21/23 10/20/23 00:00 History
tablet
omega-3 acid ethyl esters 1 gram 2 cap PO BID 10/20/23 10/21/23 10/15/23 09:00 History
capsule
ondansetron 4 mg disintegrating 4 mg PO Q6H PRN nausea/vomiting 10/20/23 10/21/23 10/19/23 23:00 History
tablet
quetiapine 25 mg tablet 25 mg PO HS PRN sleep 10/20/23 10/21/23 10/15/23 22:00 History
turmeric 2 tab PO BID 10/20/23 10/21/23 10/15/23 22:00 History
Active Medications
Generic Name Dose Route Start Last Admin
Trade Name Freq PRN Reason Stop Dose Admin
Acetaminophen 650 mg 10/20/23 16:50 10/21/23 05:54
Acetaminophen 325 Mg Tablet PO 11/17/23 16:49 650 mg
Q6HPRN PRN Administration
mild pain/ fever>100.5F
Acetaminophen/Butalbital/Caffeine 1 tab 10/20/23 21:38 10/23/23 05:11
Butalbit/Acetaminophen/Caffeine PO 11/17/23 21:37 1 tab
Q4H PRN Administration
headache
Bisacodyl 10 mg 10/23/23 11:30
Bisacodyl 10 Mg Rectal Suppository RECTAL 11/20/23 11:29
DAILYPRN PRN
constipation
Bupropion HCl 150 mg 10/22/23 08:00 10/23/23 08:59
Bupropion (24hr) Extended Release 150 Mg Tablet PO 11/19/23 07:59 150 mg
DAILY SAE Administration
Diphenhydramine HCl 50 mg 10/20/23 21:38
Diphenhydramine 50 Mg Capsule PO 11/17/23 21:37
Q4H PRN
allergic reaction/itching
Enoxaparin Sodium 40 mg 10/20/23 21:38 10/22/23 17:40
Enoxaparin Sodium 40 Mg/0.4 Ml Syringe SC 11/17/23 21:37 Not Given
QPM SAE
Sodium Chloride 250 mls @ 60 mls/hr 10/21/23 10:00 10/23/23 05:05
Nss Pvc-Free IV 10/23/23 17:00 250 mls
.Q4H10M SAE Administration
Lactobacillus/Bifidobacterium 1 cap 10/21/23 08:00 10/23/23 08:59
Lactobac/Bifidobac (Visbiome) PO 11/18/23 07:59 1 cap
TID SAE Administration
Levothyroxine Sodium 75 mcg 10/21/23 06:00 10/23/23 05:22
Levothyroxine 75 Mcg Tablet PO 11/18/23 05:59 Not Given
DAILY@0600 SAE
Lidocaine 3 patch 10/21/23 08:00 10/23/23 08:58
Lidocaine 4% Topical Patch TOPICAL 11/18/23 07:59 3 patch
DAILY SAE Administration
Liothyronine Sodium 2.5 microgram 10/21/23 08:00 10/23/23 08:59
Liothyronine 5 Microgram Tablet PO 11/18/23 07:59 2.5 microgram
DAILY SAE Administration
Lisinopril 2.5 mg 10/21/23 08:00 10/23/23 09:02
Lisinopril 2.5 Mg Tablet PO 11/18/23 07:59 Not Given
DAILY SAE
Morphine Sulfate 15 mg 10/20/23 21:38 10/20/23 23:22
Morphine 15 Mg Immediate Release Tablet PO 11/03/23 21:37 15 mg
Q6H PRN Administration
severe pain
Non-Formulary Medication 1.5 mg 10/21/23 08:00
Cariprazine [Vraylar] PO 11/18/23 07:59
BID SAE
Non-Formulary Medication 600 mg 10/20/23 21:38
Gabapentin [Gralise] PO 11/17/23 21:37
DAILY PRN
Generalized body ache
Nystatin 5 ml 10/21/23 11:20 10/23/23 08:58
Nystatin Oral Suspension 500,000 Units/5 Ml PO 11/18/23 11:19 5 ml
QID SAE Administration
Ondansetron HCl 4 mg 10/20/23 23:35 10/23/23 06:30
Ondansetron 4 Mg/2 Ml Vial IV 11/17/23 23:34 4 mg
Q6HPRN PRN Administration
NAUSEA/VOMITING
Polyethylene Glycol 17 grams 10/21/23 12:00 10/23/23 08:59
Polyethylene Glycol Powder 17 Grams Packet PO 11/18/23 11:59 17 grams
DAILY SAE Administration
Quetiapine Fumarate 25 mg 10/20/23 21:38
Quetiapine 25 Mg Tablet PO 11/17/23 21:37
HS PRN
sleep
Senna/Docusate Sodium 1 tablet 10/22/23 20:00 10/23/23 09:01
Docusate W/Senna (Kaelyn-Colace) Tablet PO 11/19/23 19:59 1 tablet
BID SAE Administration
Sodium Chloride 0 flush 10/20/23 22:00
Sodium Chloride 0.9% (Flush) Syringe IV 11/17/23 21:59
PER PROTOCOL SAE
Review of Systems
-
History Source: Patient
Constitutional: Reports Fever, No Appetite and Fatigue
EENT: Reports Other (oral thrush)
Respiratory: Reports No Symptoms
Cardiac: Reports No Symptoms
GI: Reports Nausea, Vomiting and Constipated
Breast: Reports No Symptoms
: Reports No Symptoms
Musculoskeletal: Reports No Symptoms
Skin: Reports No Symptoms
Neuro: Reports Headache and Weakness
Endocrine: Reports No Symptoms
Hematologic/Lymphatic: Reports No Symptoms
Allergy / Immunology: Reports No Symptoms
Psych: Reports No Symptoms
Physical Exam
-
General: Comfortable
HEENT: Moist Mucous Membranes
Cardiology: S1, S2, No Murmur and Rub/Gallop (NO)
Pulmonary: Other (Clear to auscultation b/l, no wheezes, rales and ronchi)
GI: Soft, No Organomegaly and Other (mild tenderness in the epigastric region, non distended)
Musculoskeletal: No Edema
Extremities: No C/C/E
Neurology: Non Focal
Skin: Warm
Hematologic / Lymphatic: No Lymphadenopathy and No Petechiae
Psych: Calm
Labs
Lab Results
WBC 1.9 10^3/uL (4.8-10.8) L* 10/23/23 07:38
RBC 3.48 10^6/uL (4.20-5.40) L 10/23/23 07:38
Hgb 10.4 g/dL (12.0-16.0) L 10/23/23 07:38
Hct 29.5 % (37.0-47.0) L 10/23/23 07:38
MCV 84.8 fL (81.0-99.0) 10/23/23 07:38
MCH 29.9 pg (27.0-31.0) 10/23/23 07:38
MCHC 35.3 g/dL (33.0-37.0) 10/23/23 07:38
RDW 13.3 % (11.5-14.5) 10/23/23 07:38
Plt Count 120 10^3/uL (130-400) L 10/23/23 07:38
MPV 10.7 fL (7.4-10.4) H 10/23/23 07:38
Abs Immat Gran (auto) 0.0 10^3/uL (0-0.05) 10/21/23 06:14
Absolute Neuts (auto) 1.0 10^3/uL (1.4-6.5) L 10/21/23 06:14
Absolute Lymphs (auto) 1.6 10^3/uL (1.2-3.4) 10/21/23 06:14
Absolute Monos (auto) 0.1 10^3/uL (0.1-0.6) 10/21/23 06:14
Absolute Eos (auto) 0.0 10^3/uL (0-0.7) 10/21/23 06:14
Absolute Basos (auto) 0.0 10^3/uL (0-0.2) 10/21/23 06:14
Immature Gran % 0.4 % (0-0.5) 10/21/23 06:14
Neutrophils % 36.4 % (42.2-75.2) L 10/21/23 06:14
Lymphocytes % 58.4 % (20.5-51.1) H 10/21/23 06:14
Monocytes % 4.4 % (1.7-9.3) 10/21/23 06:14
Eosinophils % 0.0 % (0-6) 10/21/23 06:14
Basophils % 0.4 % (0-2) 10/21/23 06:14
Creatinine 0.7 mg/dL (0.6-1.0) 10/23/23 07:38
Vital Signs
Vital Signs
Temp Pulse Resp BP Pulse Ox
98.3 F 67 16 106/78 98
10/23/23 07:59 10/23/23 07:59 10/23/23 07:59 10/23/23 10:00 10/23/23 07:59
[2023-10-23] MEDS: [UNRECOGNIZED DRUG - OTHER] IV (13:38)
[2023-10-23 13:59] LABS: EBV-EA (D) Ab IgG 41.6 U/mL (0.0-10.9); EBV-NA IgG >600.0 U/mL (0.0-21.9); EBV-VCA IgG Antibodies >750.0 U/mL (0.0-21.9)
--- NOTE | 2023-10-23 15:30 | PTCARENOTE ---
Report given to nurse on [address].
[2023-10-23 15:32] VITALS: BP 118/80
[2023-10-23] MEDS: LOVENOX SC (17:16)
[2023-10-23 18:02] VITALS: BP 130/80
[2023-10-23 23:20] VITALS: BP 99/72
[2023-10-24 06:00] LABS: Hematocrit 29.2 % (37.0-47.0); Hemoglobin 10.4 g/dL (12.0-16.0); Mean Corp Hgb Conc. 35.6 g/dL (33.0-37.0); Mean Corpuscular Hgb 29.8 pg (27.0-31.0); Mean Corpuscular Volume 83.7 fL (81.0-99.0); Mean Platelet Volume 10.7 fL (7.4-10.4); Nucleated Red Blood Cells % 0 %; Platelet Count 145 10^3/uL (130-400); Red Blood Cell Count 3.49 10^6/uL (4.20-5.40); Red Cell Dist. Width 13.4 % (11.5-14.5)
[2023-10-24 06:13] LABS: INR 0.92; PT 12.3 Sec (11.4-14.6)
[2023-10-24 06:14] LABS: APTT 30.7 Sec (23.4-35.0)
[2023-10-24 06:23] LABS: ALT (SGPT) 210 U/L (0-35); AST (SGOT) 308 U/L (14-36); Albumin 3.6 g/dl (3.5-5.0); Alkaline Phosphatase 55 U/L (38-126); Blood Urea Nitrogen 10 mg/dl (7-17); Carbon Dioxide 25 mmol/L (22-30); Chloride 102 mmol/L (98-107); Estimated Creatinine Clearance 80 ml/min; Glucose 91 mg/dl (70-99); Sodium 136 mmol/L (135-145); Total Bilirubin 0.5 mg/dl (0.2-1.3); Total Protein 8.1 g/dl (6.3-8.2); eGFR > 60.00
[2023-10-24 07:00] VITALS: BP 103/74
--- NOTE | 2023-10-24 07:26 | W.PN.HOSP.TC ---
Today's Communication/Plan
-
maintain neutropenic precautions
monitor white count, neutrophil levels, LFTs
consider GI eval if LFTs cont to worsen
Assessment / Plan
Assessment / Plan
Physical Exam
HEENT: Normocephalic and Atraumatic
Respiratory: Negative Wheezes or Rales
Cardiac: Regular Rhythm and S1/S2
GI: Soft and Nontender
Musculoskeletal: No Edema
Neuro: AO x 3
Hematologic / Lymphatic: No Lymphadenopathy
Psych: Calm
Assessment:
Sepsis (leukopenia, fever, UTI)
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
Immunocompromised patient with IVIG treatments, hx of cancer
- IVF support completed
- completed 2 days empiric IV ceftriaxone
- imaging unremarkable
- ID eval appreciated, monitoring off abx
Neutropenia
-neutropenic precautions
-Hematology Eval appreciated
Oral candidiasis (thrush) with dysphagia
- likely esophageal as well
- continue Nystatin swish/swallow
Hypovolemic hyponatremia
- continue NSS
Mononucleosis
- Elevated LFTs consider GI eval if continues to elevate
- ID following
- EBV Ab panel to confirm mono
- she is not active due to illness but reviewed spleen precautions
Constipation
- bowel regimen
-resolved at this time
Fibromyalgia
RSD/CDIP
- receives IVIG q4 weeks (Dr. Alves Neurology)
- continue Gabapentin
- continue Metaxalone
- continue Morphine
Hypothyroidism
- continue replacements
History of breast cancer s/p chemo
Mood disorder
- continue Wellbutrin, Cariprazine
- continue prn Seroquel
Essential HTN - on IVIS
Constipation
continue bowel regimen
bisacodyl rectal prn
DVT ppx: Lovenox
Code: Full
Discussed with patient at bedside and patient's over the phone
I spent a total of 50 minutes with the patient or on the floor. More than 50% of this time involved counseling and coordination of care.
Anticipated Discharge: 24 - 48 hours
Subjective/Interval History
-
Date of Service: October 24, 2023
Reports feeling well. Constipation resolved. Denies new acute issues at this time.
Objective Data
-
Labs:
Laboratory Results
10/24/23
05:30
WBC Pending
Hgb 10.4 L
Hct 29.2 L
Plt Count 145 D
PT 12.3
INR 0.92
APTT 30.7
Sodium 136
Potassium 4.0
Chloride 102
Carbon Dioxide 25
BUN 10
Creatinine 0.7
Glucose 91
Calcium 9.0
Total Bilirubin 0.5
AST 308 H
ALT 210 H
Alkaline Phosphatase 55
Vital Signs:
Vital Signs
Temp Pulse Resp BP Pulse Ox
98.2 F 77 16 99/72 100
10/23/23 23:20 10/23/23 23:20 10/23/23 23:20 10/23/23 23:20 10/23/23 23:20
I&O
10/23/23 10/24/23 10/25/23
06:59 06:59 06:59
Intake Total 2880 / 2880 3400 / 3400
Output Total 400 / 400 800 / 800
Balance 2480 / 2480 2600 / 2600
[2023-10-24 08:16] LABS: White Blood Cell Count 1.9 10^3/uL (4.8-10.8)
[2023-10-24 08:18] LABS: Band Neutrophils 10 % (0-3); Eosinophils 1 % (0-6); Lymphocytes 50 % (20-51); Segmented Neutrophils 31 % (42-75)
[2023-10-24 08:19] LABS: Absolute Neutrophils -Man Diff 0.7 10^3/uL (1.4-6.5); Monocytes 8 % (2-9); Normal RBC Morphology Yes; Platelets Checked Yes; Total Cells Counted 100
[2023-10-24] MEDS: LIDOCAINE 4% PATCH 3 PATCH TOPICAL (09:21)
[2023-10-24] MEDS: WELLBUTRIN XL (24 hour extended release) 150 MG PO (09:25)
[2023-10-24] MEDS: VISBIOME 1 CAP PO ×3 (09:26→21:05)
[2023-10-24] MEDS: SENOKOT-S 1 TABLET PO ×2 (09:26→20:33)
[2023-10-24] MEDS: CYTOMEL 2.5 MICROGRAM PO (09:26)
[2023-10-24] MEDS: MIRALAX 17 GRAMS PO (09:26)
[2023-10-24] MEDS: MYCOSTATIN ORAL SUSPENSION 5 ML PO ×4 (09:26→21:05)
--- NOTE | 2023-10-24 11:10 | W.PN.ONC ---
Documented by User: Kourtney Mckeon MD, Resident 10/24/23 11:15
Today's Communication / Plan
-
Neutropenia precautions
Hematology signing off, will follow up with the patient on outpatient basis
Impression
Impression
Impression -
Simran, 43 Yo F presents to the hospital with fever, headaches, fatigue, myalgias, nausea and vomitings. S/p IvIG infusions for CIDP, and Chemotherapy for herceptin positive breast carcinoma about 12 years ago. Hematology consulted for pancytopenia.
Plan -
Pancytopenia -
leukopenia with neutropenia and lymphocytosis
WBC - 2.1 10/22 - 1.9 10/23, ANC - 0.8 on 10/22 - 0.7 10/23, lymphocytes - 50.
platelet count -120.
Hb, hematocrit low.
Neutropenia precautions include hand hygeine.
Avoid plants and fresh or dried [place] in patients room.
Fever -
Improved, generalized fatigue and myalgias improved.
Appetite not yet improved.
temperature charts
Drugs that can cause the above hematological picture include IvIG, Cariprazine. IvIG can also contribute to hemolytic anemias. Lactate dehydrogenase levels elevated with normal reticulocyte count. serum haptoglobins pending.
Elevated AST, ALT(trending up)
Likely multifactorial - reports to have taken lots of tylenol before presenting to the office, monospot and EBV antibodies positive, and presence of hepatic steatosis. ID differential include lymphocytic histiocytosis.
PMHx of chemotherapy with cyclophosphamides and platins. In the setting of chemotherapy history, other differentials include leukemia and myelodysplastic syndrome.
Coagulation profile within normal limits. Stable from hematology perspective. Will continue to follow up outpatient.
Plan
Plan
- Coagulation profile within normal limits.
- hematology will follow up on outpatient basis.
Subjective/Objective
Subjective/Objective
Vital Signs:
Vital Signs
Temp Pulse Resp BP Pulse Ox
98.1 F 77 16 103/74 99
04/10/24 07:00 10/24/23 07:00 10/24/23 07:00 10/24/23 07:00 10/24/23 07:00
Lab Results:
Laboratory Data
WBC 1.9 10^3/uL (4.8-10.8) L* 10/24/23 05:30
Hgb 10.4 g/dL (12.0-16.0) L 10/24/23 05:30
Plt Count 145 10^3/uL (130-400) D 10/24/23 05:30
PT 12.3 Sec (11.4-14.6) 10/24/23 05:30
INR 0.92 10/24/23 05:30
APTT 30.7 Sec (23.4-35.0) 10/24/23 05:30
eGFR > 60.00 10/24/23 05:30
Orders
Orders
Orders From Last 24 Hours
10/23/23 12:30
Direct Bilirubin Routine
LDH Routine
10/23/23 12:31
Haptoglobin [S] Routine
Reticulocyte Count Routine

Documented by User: Ton Allred MD 10/24/23 12:56
Plan
Plan
- Coagulation profile within normal limits.
- hematology will follow up on outpatient basis.
ADDENDUM:
Agree w resident's note.
Patient is clinically improving and feeling better. Now afebrile.
Suspect cytopenias are related to viral syndrome and should spontaneously improve over next 1-2 weeks.
Okay to travel to [place] (son's college tour at [employer]) this weekend with masking and neutropenic precautions. Reviewed with patient.
Outpt F/U CBC in ~ 1-2 weeks via PCP.
--- NOTE | 2023-10-24 13:16 | W.PN.ID1 ---
Date of Service
Date of Service: October 24, 2023
Today's Communication
See below.
Assessment / Plan
# Fevers resolved
# Acute Pancytopenia
- Leukopenia. ANC trending down
- Thrombocytopenia resolved
# Asymptomatic E. coli bacteruria. Repeat Ucx negative prior to start of abx.
# False positive Monospot test; EBV IGM negative
# Acute Elevated LFT trending up
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
# Oral candidiasis -improved.
# hx breast ca s/p chemo 2012
-No UTI. Repeat Ucx negative before abx.
s/p 3d ceftriaxone - dc'd
- blood cx neg to date
- CXR neg.
-COVID/Flu negative
-CT a/p mild fatty infiltration of liver
-Per Hem/Onc, IVIG can be associated with leukopenia. but doesn't explain elevated LFT's
- EBV IgG+, IgM neg, EBNA Ab+ -> suggestive of past infection
- Unlikely HLH, as fever not persistent, no splenomegaly, no LAD, and feeling improved. However, will check plasma EBV DNA viral load to assess for chronic active EBV.
- If LFT's continues to trend up, consider GI consult.
Chief Complaint
-: Other (Pancytopenia)
Subjective / Review of Systems
Continues to feel better. No abd pain.
Vital Signs / Physical Exam
Vital Signs
Vital Signs
Temp Pulse Resp BP Pulse Ox
98.1 F 77 16 103/74 99
10/24/23 07:00 10/24/23 07:00 10/24/23 07:00 10/24/23 07:00 10/24/23 07:00
Physical Exam
Constitutional: No Acute Distress and Comfortable
Gastrointestinal: Soft, Non Tender and Non Distended
Genito-Urinary: Negative CVA Tenderness
Extremities: Negative Edema
Neurological: AO x 3
Objective Data
Lab Data
Lab Results
10/24/23 05:30
10/24/23 05:30
PT 12.3 Sec (11.4-14.6) 10/24/23 05:30
INR 0.92 10/24/23 05:30
APTT 30.7 Sec (23.4-35.0) 10/24/23 05:30
Estimated Creat Clear 80 ml/min 10/24/23 05:30
Lactic Acid Cancelled 10/21/23 09:38
Total Bilirubin 0.5 mg/dl (0.2-1.3) 10/24/23 05:30
AST 308 U/L (14-36) H 10/24/23 05:30
ALT 210 U/L (0-35) H 10/24/23 05:30
Alkaline Phosphatase 55 U/L (38-126) 10/24/23 05:30
Most recent labs reviewed.
Micro Results:
10/20/23 13:32 Blood Culture - Preliminary
Blood/Venous No Growth in 72 hours- Final report to follow
10/20/23 13:32 Blood Culture - Preliminary
Blood/Venous No Growth in 72 hours- Final report to follow
10/20/23 21:00 Urine Culture - Final
Urine NO GROWTH
10/20/23 14:18 Influenza Types A & B ([facility]) - Final
Nasal Swab Negative for Influenza A & B, NAAT
Negative results must be combined with clinical observations
and patient history.
Nucleic Acid Amplification test (NAAT)performed on the
[employer] platform.
10/20/23 Renal US: No sonographic evidence for hydronephrosis or intrarenal calculus.
10/20/23 No radiographic evidence for pneumonia.
10/18/23 CT a/p: Normal appearance of both kidneys and the bladder. No evidence for urinary tract calculi. The appendix appears normal. There is no evidence for bowel obstruction or free intraperitoneal air. Moderate to large amount of stool within
the colon, suggesting a degree of constipation. No significant bowel wall thickening is evident. Mild fatty infiltration of the liver.
--- NOTE | 2023-10-24 13:57 | CM ---
Case management following for d/c planning
No anticipated needs noted
Has ride home at d/c with
Plan - anticipate home no needs
[2023-10-24 15:00] VITALS: BP 105/72
[2023-10-24] MEDS: LOVENOX SC (17:09)
[2023-10-24 23:55] VITALS: BP 113/77
[2023-10-25 06:01] LABS: % Basophils 0.5 % (0-2); % Lymphocytes 56.8 % (20.5-51.1); % Monocytes 12.1 % (1.7-9.3); % Neutrophils 30.6 % (42.2-75.2); Absolute Lymphocytes 1.1 10^3/uL (1.2-3.4); Absolute Monocytes 0.2 10^3/uL (0.1-0.6); Absolute Neutrophils 0.6 10^3/uL (1.4-6.5); Hematocrit 30.3 % (37.0-47.0); Hemoglobin 10.4 g/dL (12.0-16.0); Mean Corp Hgb Conc. 34.3 g/dL (33.0-37.0); Mean Corpuscular Hgb 29.5 pg (27.0-31.0); Mean Corpuscular Volume 86.1 fL (81.0-99.0); Mean Platelet Volume 10.5 fL (7.4-10.4); Platelet Count 178 10^3/uL (130-400); Red Blood Cell Count 3.52 10^6/uL (4.20-5.40); Red Cell Dist. Width 13.3 % (11.5-14.5)
[2023-10-25 06:59] LABS: ALT (SGPT) 224 U/L (0-35); AST (SGOT) 254 U/L (14-36); Albumin 3.6 g/dl (3.5-5.0); Alkaline Phosphatase 57 U/L (38-126); Blood Urea Nitrogen 10 mg/dl (7-17); Carbon Dioxide 24 mmol/L (22-30); Chloride 102 mmol/L (98-107); Estimated Creatinine Clearance 94 ml/min; Glucose 96 mg/dl (70-99); Potassium 3.8 mmol/L (3.5-5.1); Sodium 135 mmol/L (135-145); Total Bilirubin 0.6 mg/dl (0.2-1.3); Total Protein 8.1 g/dl (6.3-8.2); eGFR > 60.00
[2023-10-25] MEDS: LIDOCAINE 4% PATCH 3 PATCH TOPICAL (07:33)
[2023-10-25] MEDS: VISBIOME 1 CAP PO (07:33)
[2023-10-25] MEDS: WELLBUTRIN XL (24 hour extended release) 150 MG PO (07:34)
[2023-10-25] MEDS: CYTOMEL 2.5 MICROGRAM PO (07:34)
[2023-10-25] MEDS: SENOKOT-S 1 TABLET PO (07:34)
[2023-10-25] MEDS: MYCOSTATIN ORAL SUSPENSION 5 ML PO ×2 (07:34→12:19)
[2023-10-25] MEDS: MIRALAX 17 GRAMS PO (07:40)
--- NOTE | 2023-10-25 10:45 | W.PN.ONC ---
Today's Communication / Plan
-
Continue to monitor for resolution of neutropenia
Persistent findings would require an evaluation for neutrophil associated antibody and possible bone marrow biopsy
Will follow intermittently
Impression
Impression
Persistent neutropenia
Improving thrombocytopenia
CIDP with IVIG
Subjective/Objective
Subjective/Objective
Patient without new complaints. No new focal symptoms of infection no fevers or rigors
Vital Signs:
Vital Signs
Temp Pulse Resp BP Pulse Ox
98.1 F 72 20 105/73 99
10/24/23 23:55 10/25/23 07:43 10/24/23 23:55 10/25/23 07:43 10/24/23 23:55
Physical exam unchanged
Lab Results:
Laboratory Data
WBC 2.0 10^3/uL (4.8-10.8) L* 10/25/23 05:52
Hgb 10.4 g/dL (12.0-16.0) L 10/25/23 05:52
Plt Count 178 10^3/uL (130-400) D 10/25/23 05:52
PT 12.3 Sec (11.4-14.6) 10/24/23 05:30
INR 0.92 10/24/23 05:30
APTT 30.7 Sec (23.4-35.0) 10/24/23 05:30
eGFR > 60.00 10/25/23 05:52
--- NOTE | 2023-10-25 10:49 | W.PN.ID1 ---
Addendum entered and electronically signed by Gloria Ch MD 10/31/23 12:08:
Follow-up pending lab: EBV PCR negative. I called patient and informed her of the negative EBV result. She reports she continues to feel better.
Original Note:
Date of Service
Date of Service: October 25, 2023
Today's Communication
OK to dc home.
Assessment / Plan
# Fevers resolved
# Acute Pancytopenia
- Leukopenia. ANC trending down 600. +lymphocytosis
- Thrombocytopenia resolved
# Asymptomatic E. coli bacteruria. Repeat Ucx negative prior to start of abx.
# False positive Monospot test; EBV IGM negative
# Acute Elevated LFT
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
# Oral candidiasis -improved.
# hx breast ca s/p chemo 2012
-No UTI. Repeat Ucx negative before abx.
s/p 3d ceftriaxone - dc'd
- blood cx neg to date
- CXR neg.
-COVID/Flu negative
-CT a/p mild fatty infiltration of liver
-Per Hem/Onc, IVIG can be associated with leukopenia. but doesn't explain elevated LFT's
- EBV IgG+, IgM neg, EBNA Ab+ -> suggestive of past infection
- Unlikely HLH, as fever not persistent, no splenomegaly, no LAD, and feeling improved. However, will check plasma EBV DNA viral load to assess for chronic active EBV. I will call her with result.
-OK to dc home with close follow-up with Hem/Onc.
- Discussed vigilant neutropenic precaution measures.
Chief Complaint
-: Other (Pancytopenia)
Subjective / Review of Systems
Continues to feel better. No new symptoms. Will like to go home. Will like to accompany son to [place].
Vital Signs / Physical Exam
Vital Signs
Vital Signs
Temp Pulse Resp BP Pulse Ox
98.1 F 72 20 105/73 99
10/24/23 23:55 10/25/23 07:43 10/24/23 23:55 10/25/23 07:43 10/24/23 23:55
Physical Exam
Constitutional: No Acute Distress and Comfortable
Oropharyngeal: Thrush (improved)
Cardiovascular: Regular Rate and S1/S2
Pulmonary: Clear
Gastrointestinal: Non Tender and Non Distended
Genito-Urinary: Negative CVA Tenderness
Extremities: Negative Edema
Neurological: AO x 3
Objective Data
Lab Data
Lab Results
10/25/23 05:52
PT 12.3 Sec (11.4-14.6) 10/24/23 05:30
INR 0.92 10/24/23 05:30
APTT 30.7 Sec (23.4-35.0) 10/24/23 05:30
Estimated Creat Clear 94 ml/min 10/25/23 05:52
Lactic Acid Cancelled 10/21/23 09:38
Total Bilirubin 0.6 mg/dl (0.2-1.3) 10/25/23 05:52
AST 254 U/L (14-36) H 10/25/23 05:52
ALT 224 U/L (0-35) H 10/25/23 05:52
Alkaline Phosphatase 57 U/L (38-126) 10/25/23 05:52
Most recent labs reviewed.
Micro Results:
10/20/23 13:32 Blood Culture - Preliminary
Blood/Venous No Growth in 4 days- Final report to follow
10/20/23 13:32 Blood Culture - Preliminary
Blood/Venous No Growth in 4 days- Final report to follow
10/20/23 21:00 Urine Culture - Final
Urine NO GROWTH
10/20/23 14:18 Influenza Types A & B ([facility]) - Final
Nasal Swab Negative for Influenza A & B, NAAT
Negative results must be combined with clinical observations
and patient history.
Nucleic Acid Amplification test (NAAT)performed on the
[employer] platform.
10/20/23 Renal US: No sonographic evidence for hydronephrosis or intrarenal calculus.
10/20/23 No radiographic evidence for pneumonia.
10/18/23 CT a/p: Normal appearance of both kidneys and the bladder. No evidence for urinary tract calculi. The appendix appears normal. There is no evidence for bowel obstruction or free intraperitoneal air. Moderate to large amount of stool within
the colon, suggesting a degree of constipation. No significant bowel wall thickening is evident. Mild fatty infiltration of the liver.
Care Review
Plan reviewed with: Physician (Dr. Sergei Greer)
[2023-10-25 12:22] LABS: ALT (SGPT) 231 U/L (0-35); AST (SGOT) 253 U/L (14-36); Albumin 3.8 g/dl (3.5-5.0); Alkaline Phosphatase 61 U/L (38-126); Blood Urea Nitrogen 8 mg/dl (7-17); Calcium 9.2 mg/dl (8.4-10.2); Carbon Dioxide 27 mmol/L (22-30); Chloride 101 mmol/L (98-107); Estimated Creatinine Clearance 80 ml/min; Glucose 150 mg/dl (70-99); Potassium 3.9 mmol/L (3.5-5.1); Sodium 135 mmol/L (135-145); Total Bilirubin 0.6 mg/dl (0.2-1.3); Total Protein 8.5 g/dl (6.3-8.2); eGFR > 60.00
--- NOTE | 2023-10-25 12:37 | W.PN.HOSP.TC ---
Today's Communication/Plan
-
dc home today
Assessment / Plan
Assessment / Plan
Assessment:
Sepsis (leukopenia, fever, UTI)
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
Immunocompromised patient with IVIG treatments, hx of cancer
- IVF support completed
- completed 2 days empiric IV ceftriaxone
- imaging unremarkable
- ID eval appreciated, monitoring off abx
Neutropenia
- neutropenic precautions
- Hematology Eval appreciated
- repeat CBC in 1 week
Oral candidiasis (thrush) with dysphagia
- likely esophageal as well
- continue Nystatin swish/swallow x 14 days total
Hypovolemic hyponatremia
Mononucleosis
- EBV serologies suggest older infection and viral load pending
Constipation
- bowel regimen
- resolved at this time
Fibromyalgia
RSD/CDIP
- receives IVIG q4 weeks (Dr. [facility])
- continue Gabapentin
- continue Metaxalone
- continue Morphine
Hypothyroidism
- continue replacements
History of breast cancer s/p chemo
Mood disorder
- continue Wellbutrin, Cariprazine
- continue prn Seroquel
Essential HTN - on IVIS
DVT ppx: Lovenox
Code: Full
More than 30 minutes spent in discharge including
Final examination of the patient
Summarizing hospital stay
Instructions for continuing care to all relevant caregivers
Preparation of discharge records, prescriptions, and referral forms
Total time spent (in minutes): 41
Anticipated Discharge: Today
Subjective/Interval History
-
Date of Service: October 25, 2023
no new complaints
Objective Data
-
Labs:
Laboratory Results
10/25/23 10/25/23
05:52 11:31
WBC 2.0 L*
Hgb 10.4 L
Hct 30.3 L
Plt Count 178 D
Sodium 135 135
Potassium 3.8 3.9
Chloride 102 101
Carbon Dioxide 24 27
BUN 10 8
Creatinine 0.6 0.7
Glucose 96 150 H
Calcium 9.0 9.2
Total Bilirubin 0.6 0.6
AST 254 H 253 H
ALT 224 H 231 H
Alkaline Phosphatase 57 61
Vital Signs:
Vital Signs
Temp Pulse Resp BP Pulse Ox
98.1 F 72 20 105/73 99
10/24/23 23:55 10/25/23 07:43 10/24/23 23:55 10/25/23 07:43 10/24/23 23:55
I&O
10/24/23 10/25/23 10/26/23
06:59 06:59 06:59
Intake Total 3400 / 3400 1280 / 1280
Output Total 800 / 800
Balance 2600 / 2600 1280 / 1280
Physical Exam
-
General: No Apparent Distress
HEENT: Normocephalic and Atraumatic
Respiratory: Negative Wheezes or Rales
Cardiac: Regular Rhythm and S1/S2
GI: Soft and Nontender
Genito-urinary: No Costovertebral Tender
Musculoskeletal: No Edema
Neuro: AO x 3
Hematologic / Lymphatic: No Lymphadenopathy
Psych: Calm
Data Reviewed
-
Total Time Spent with Patient (in minutes): 42
Labs: Labs Reviewed by me
--- NOTE | 2023-10-25 13:06 | W.DS.TRANS ---
DC Summary - [employer]
-
Discharge Instructions:
Discharge Diagnosis/Procedures thrush, possible mono +, elevated LFTs,
neutropenia
Diet Regular
Activity As tolerated
Bathing Restrictions None
Blood Work repeat labs in 1 week - slip given
Instructions:
Stand-Alone Forms:
Changes to Home Medications: No
Discharge Medications:
DC Medications w/original date entered in [employer]
cholecalciferol (vitamin D3) 50 mcg (2,000 unit) tablet 5,000 unit PO DAILY Supplement 01/06/19
lidocaine 5 % topical patch 3 patch topical DAILY Pain 01/06/19
Greenfood 2 tab PO BID Supplement 10/20/23
Probiotic 1 - 2 cap PO BID Supplement 10/20/23
acetaminophen 500 mg tablet 1,000 mg PO Q6H PRN mild pain/fever 10/20/23
bupropion HCl 150 mg 24 hr tablet, extended release 150 mg PO DAILY Mental health 10/20/23
ogsbtferkx-gkbpizhhwuwey-aofecxwk 50 mg-325 mg-40 mg tablet 1 tab PO Q4H PRN headache 10/20/23
cyanocobalamin (vitamin B-12) 1,000 mcg tablet (Vitamin B-12) 1,000 mcg PO DAILY Supplement 10/20/23
diphenhydramine HCl 50 mg capsule 50 mg PO Q4H PRN allergic reaction/itching 10/20/23
wkltmkwqlhx-gmmeqqiot-gtg C-Mn 500 mg-400 mg capsule 1 cap PO TID Supplement 10/20/23
levothyroxine 75 mcg capsule (Tirosint) 75 mcg PO DAILY Thyroid 10/20/23
liothyronine 5 mcg tablet 2.5 mcg PO DAILY Thyroid 10/20/23
lisinopril 2.5 mg tablet 2.5 mg PO DAILY Blood Pressure 10/20/23
metaxalone 800 mg tablet 800 mg PO BID PRN moderate pain 10/20/23
morphine 15 mg immediate release tablet 30 mg PO Q6H PRN severe pain 10/20/23
omega-3 acid ethyl esters 1 gram capsule 2 cap PO BID Supplement 10/20/23
ondansetron 4 mg disintegrating tablet 4 mg PO Q6H PRN nausea/vomiting 10/20/23
quetiapine 25 mg tablet 25 mg PO HS PRN sleep 10/20/23
turmeric 2 tab PO BID Supplement 10/20/23
gabapentin 100 mg capsule 100 mg PO TIDPRN PRN PAIN/SLEEP 10/24/23
nystatin 100,000 unit/mL oral suspension 5 ml PO QID #200 mL 10/25/23
Home Medication Changes
Pending Results: No
Total time spent discharging patient (in min): 42
--- NOTE | 2023-10-25 13:48 | CM ---
Pt for d/c today
No anticipated needs noted
Has ride home
Plan - anticipate home no needs
[2023-10-25 14:28] VITALS: BP 111/79
[2023-10-25 17:08] LABS: Haptoglobin <10 mg/dL (30-200)
== END 2023-10-25 15:41 | disposition home or self-care (01) | DRG 872 ==
LOC: 3 WEST ACU 17:37
PROVIDERS: Internal Medicine; Physician Assistant Medical; Student in an Organized Health Care Education/Training Program; ADMITTING PHYSICIAN Internal Medicine; ATTENDING PHYSICIAN Internal Medicine; CONSULT PHYSICIAN Internal Medicine Hematology & Oncology; CONSULT PHYSICIAN Internal Medicine Infectious Disease; EMERGENCY PHYSICIAN Emergency Medicine
DX: A41.9 Sepsis, unspecified organism (principal); N39.0 Urinary tract infection, site not specified; E87.1 Hypo-osmolality and hyponatremia; D84.9 Immunodeficiency, unspecified; D61.818 Other pancytopenia; B37.0 Candidal stomatitis; G90.59 Complex regional pain syndrome I of other specified site; G61.81 Chronic inflammatory demyelinating polyneuritis; B27.90 Infectious mononucleosis, unspecified without complication; E86.0 Dehydration; K76.0 Fatty (change of) liver, not elsewhere classified; M79.7 Fibromyalgia; E86.1 Hypovolemia; E06.3 Autoimmune thyroiditis; F31.9 Bipolar disorder, unspecified; I10 Essential (primary) hypertension; D69.6 Thrombocytopenia, unspecified
CPT/HCPCS: 71046; 74176; 76775; 80053; 81003; 81015; 82248; 82728; 83010; 83605; 83615; 83735; 84145; 84703; 85025; 85045; 85610; 85730; 86308; 86663; 86664; 86665; 87040; 87077; 87086; 87088; 87186; 87502; 87811; 96361; 96374; 96375; 99284; 99285

== ENCOUNTER → 2023-11-22 10:37 | Outpatient (REF) | payer MEDICARE, BC, SELFPAY | LOC: HWRAD 10:37 | PROVIDERS: ATTENDING PHYSICIAN Physical Medicine & Rehabilitation; FAMILY PHYSICIAN Family Medicine | DX: E07.9 Disorder of thyroid, unspecified (principal) | CPT/HCPCS: 76536 ==

== ENCOUNTER → 2024-03-19 06:33 | Day surgery (SDC) | payer MEDICARE, BC, SELFPAY | LOC: GI 06:33 | PROVIDERS: ATTENDING PHYSICIAN Internal Medicine | DX: K57.30 Diverticulosis of large intestine without perforation or abscess without bleeding (principal); K56.2 Volvulus; R10.84 Generalized abdominal pain; R63.4 Abnormal weight loss; R13.10 Dysphagia, unspecified; K44.9 Diaphragmatic hernia without obstruction or gangrene; K31.89 Other diseases of stomach and duodenum; R11.0 Nausea; Z85.3 Personal history of malignant neoplasm of breast | CPT/HCPCS: 45378; 43239; 88305; 88342 ==

== ENCOUNTER → 2025-03-02 11:22 | Outpatient (REF) | payer MEDICARE, BC, SELFPAY | LOC: MRI 3T 11:22 | PROVIDERS: ATTENDING PHYSICIAN Internal Medicine; PRIMARYCARE PHYSICIAN Family Medicine | DX: R10.32 Left lower quadrant pain (principal); R63.4 Abnormal weight loss | CPT/HCPCS: 72197; 74183; A9575 ==

== ENCOUNTER → 2025-06-10 18:18 | Outpatient (REF) | payer MEDICARE, BC, SELFPAY | LOC: RAD 18:18 | PROVIDERS: ATTENDING PHYSICIAN Family Medicine | DX: M25.561 Pain in right knee (principal); M25.562 Pain in left knee; M25.571 Pain in right ankle and joints of right foot | CPT/HCPCS: 73564; 73610 ==